=== PATIENT | female | born 1950 | race Caucasian/White ===

== ENCOUNTER 2023-08-21 09:45 | Inpatient (IN) | payer MEDICARE, SELFPAY ==
[2023-08-21] MEDS: SENOKOT PO ×2 (08:00→21:03)
[2023-08-21 09:55] VITALS: BP 119/83
--- NOTE | 2023-08-21 10:39 | HPS.HSE ---
Addendum entered and electronically signed by ARCHIE Nevarez 08/21/23 13:40:
Edit: Former Smoker
Original Note:
Family Physician
-
Family Physician: Maldonado Restrepo
Chief Complaint
-
Tachycardia
History of Present Illness
72-year-old female with past medical history of anxiety, depression, GERD, spinal stenosis was recently diagnosed with influenza A and treated with Tamiflu presented to [facility]'s emergency room on 08/14 for palpitations and the feeling
of anxiety. Patient was found to be in rapid A-fib and had elevated troponins. She was started on a cardizem and heparin infusion. LHC was preformed at [facility] and MVD was found. She was transferred today for pre-operative work up and eventual CT
surgery.
Of note, she has completed her course of tamiflu.
Medical History
Past Medical History
Past Medical History: Reports Arrhythmia, CAD, GERD, HTN, Hypercholesterolemia and Psychiatric (anxiety/depression)
Past Surgical History: Reports Cardiac (LHC)
Social History
Tobacco: Non-smoker
Alcohol: Occasional
Drug: Marijuana
Employment: Retired
Family History
Family History: CAD
Allergies / Home Medications
Allergies reflects when Allergies were last updated in [facility].
Home Medications with original date entered in [facility]
Allergy/Medication List:
PCN and Iodinated contrast media
Medication list:
Lexapro 20 mg p.o. daily
Pantoprazole 40 mg p.o. daily
Xanax 0.25 mg every 8 hours as needed for anxiety
Aspirin 81 mg p.o. daily
Atorvastatin 20 mg p.o. nightly
Metoprolol succinate 25 mg p.o. daily
Review of Systems
-
History Source: Patient
A 12 point ROS was completed and negative except as noted: Yes
Constitutional: Reports Fever and Fatigue
Respiratory: Reports Trouble Breathing
Cardiac: Reports Palpitations
Physical Exam
Vital Signs
Vital Signs
Pulse Ox
97
08/21/23 09:58
Physical Exam
General: Well Developed
HEENT: NormoCephalic
Respiratory: Decreased Breath Sounds
Cardiac: S1/S2
Breast: Deferred by me
GI: Soft, Non Tender and Flat
Rectal: Deferred by Provider
Musculoskeletal: No Edema
Skin: Warm and Dry
Neuro: AO x 3
Hematologic/Lymphatic: No Lymphadenopathy
Psych: Calm
Laboratory Results
-
pending
Impression/Plan
-
IMPRESSION:
72-year-old female with past medical history listed above transferred from [facility] for CABG eval.
PLAN:
#CAD
-Patient's case will be discussed with attending physician; Further details regarding surgical timing intervention will be determined after attending physicians full evaluation
-Routine preoperative cardiothoracic surgery orders will be initiated.
>>Imaging preformed at [facility] requested
-STS risk stratification score will be calculated after preoperative testing is complete
-Continue heparin gtt
- LHC at [facility] revealed significant ostial circumflex lesion, mid LAD lesion and moderate distal left main eccentric lesion and its significantly calcified
#Hx of Atrial Fibrillation
- continue heparin gtt
- continue metoprolol
#Anxiety/Depression
-continue lexpro and xanax PRN
#HLD
-continue atorvastatin
#Influenza A
- Complete tamiflu (5 day course)
- Monitor fever trends
- t/C ID consult
[2023-08-21 10:48] VITALS: BMI 23.6
--- NOTE | 2023-08-21 10:54 | CON.CAR ---
Addendum entered and electronically signed by Shahid Grigsby MD 08/21/23 15:00:
72 yo female with PMH of GERD, recent flu transferred from [facility] with CAD, NSTEMI for CABG evaluation. Also new paroxysmal A fib. She is chest pain free. Exam with RRR, no murmurs, no edema. I reviewed her echo images: EF 50-55%, no significant
valve disease. Continue ASA 81mg daily, and heparin drip. LFT are elevated: trend before starting statin.
Original Note:
Consultation
Consultation Request
Date/Time Consultation Requested: 08/21/23 1037
Date/Time Consultation Performed: 08/21/23 1056
Requesting Provider: Elicia Machado NP
Performing Provider: Tosin ALMANZA for Dr. Grigsby
Reason for Consultation: coronary artery disease
Medical History
-
Chief Complaint: nausea, palpitations, SOB
History of Present Illness:
72 y/o female with GERD, anxiety, depression, spinal stenosis, and COVID19 in June who is transferred from [facility] for surgical management of newly discovered CAD. Briefly, she developed nausea and dry-heaving at home last Monday
08/11/23, then she developed palpitations and SOB, as well as cough and went to the hospital last Monday. She tested + for flu A at urgent care prior. In the hospital, she was seen to have AFIB with RVR. IV diltiazem and heparin were initiated, and
has since converted to SR. Per [facility] cardiology notes, she was briefly on sotalol, but QTC prolonged and she was changed to metoprolol. Otherwise, troponin was elevated. Cath showed multivessel disease (see below) and she is transferred for CABG.
Past Medical History
Past Medical History: GERD, Psychiatric (anxiety/depression) and Other (as above)
Social History
Tobacco: Former Smoker (quit 30-40 years ago)
Alcohol: Occasional (occasional glass of wine)
Drug: Marijuana (occasional)
Family History
Family History: Early CAD (Mom had first PR in her 30's. at age 75. Had bypass surgery.)
Allergies / Home Medications
Allergy/AdvReac Type Severity Reaction Status Date / Time
Iodinated Contrast Media Allergy Intermediate Rash Verified 08/21/23 10:43
Penicillins Allergy Unknown Unknown Verified 08/21/23 10:43
Home medications:
-pantoprazole and escitalopram (not sure of her home dosing)
Review of Systems
-
History Source: Patient and Other (and chart and discussion with CT surgery ADMINISTRATIVE APPEALS TRIBUNAL MEMBER)
All other systems: Negative unless noted
Respiratory: Cough and Trouble Breathing
Cardiac: Palpitations
Abdomen/GI: Nausea
Physical Exam
Vital Signs
Pulse Ox
97
08/21/23 09:58
Physical Exam
General: Well Developed, Well Nourished and No Apparent Distress
HEENT: Normocephalic and Anicteric
Respiratory: Clear and Non Labored Respirations
Cardiac: Regular Rhythm
Breast: Deferred by me
GI: Soft, Non Distended and Normal Bowel Sounds
Musculoskeletal: No Edema
Skin: Warm and Dry
Neuro: AO x 3
Psych: Calm
Impression / Plan
-
Coronary artery disease:
-new diagnosis, severe
-CABG plan per CT surgery
-continue ASA, statin, BB, continue heparin
-per notes, patient with NSTEMI - more records to come (such as official echo report), but per report EF was normal
-obtain baseline EKG here- ordered
Paroxysmal AFIB:
-currently in SR, follow telemetry
-[id number] score is at least 3 for age, female, and CAD; continue IV heparin, which requires intensive monitoring for toxicity
-continue metoprolol
Recent Flu A
Anxiety/depression: takes Lexapro as OP
Data Reviewed
-
EKG: Other (will order baseline EKG)
Radiology: Report Reviewed by me
Medical Tests (Nuc Med, Echo etc): Report Reviewed by me (cath 08/17/23: LM severe calcification, distal 40% stenosis, LAD: severe calcification, circ: ostial 80% stenosis, RCA: prox 20% stenosis and 30% stenosis, mid and distal 10 percent stenosis)
and Other (echo done at [facility] and results requested by CT surgery team)
Labs: Labs Reviewed by me (hgb 13.9, creatinine 0.8, potassium 4.1 )
[2023-08-21 10:58] LABS: Hematocrit 38.5 % (37.0-47.0); Hemoglobin 13.9 g/dL (12.0-16.0); Mean Corp Hgb Conc. 36.1 g/dL (33.0-37.0); Mean Corpuscular Hgb 30.5 pg (27.0-31.0); Mean Corpuscular Volume 84.6 fL (81.0-99.0); Mean Platelet Volume 10.6 fL (7.4-10.4); Platelet Count 253 10^3/uL (130-400); Red Blood Cell Count 4.55 10^6/uL (4.20-5.40); White Blood Cell Count 7.9 10^3/uL (4.8-10.8)
[2023-08-21 11:12] LABS: INR 1.06; PT 13.6 Sec (11.4-14.6)
[2023-08-21 11:13] LABS: ALT (SGPT) 125 U/L (0-35); APTT 39.1 Sec (23.4-35.0); AST (SGOT) 111 U/L (14-36); Alkaline Phosphatase 66 U/L (38-126); Blood Urea Nitrogen 19 mg/dl (7-17); Calcium 9.2 mg/dl (8.4-10.2); Carbon Dioxide 24 mmol/L (22-30); Chloride 106 mmol/L (98-107); Estimated Creatinine Clearance 63 ml/min; Glucose 104 mg/dl (70-99); Magnesium 2.1 mg/dl (1.6-2.3); Potassium 4.1 mmol/L (3.5-5.1); Sodium 136 mmol/L (135-145); Total Bilirubin 1.1 mg/dl (0.2-1.3); Total Protein 6.6 g/dl (6.3-8.2); eGFR > 60.00
[2023-08-21 11:21] LABS: NT-proBNP 418 pg/ml
--- NOTE | 2023-08-21 11:35 | PTCARENOTE ---
Patient transferred from [facility] with CABG evaluation. IV heparin infusing RFA at 950 units/hr. Patient seen by CT surgery PA. Labs sent as ordered. Patient oriented to the room and plan of care, admission assessment completed, SR on the monitor.
Patient does appear anxious and overwhelmed with impending surgery. Ordering lunch, call gonzalez within reach.
[2023-08-21] MEDS: HEPARIN 25000 UNITS/250 ML IV (12:52)
[2023-08-21 13:00] VITALS: BP 109/91
--- NOTE | 2023-08-21 15:26 | W.PN.UPDATE ---
Update Note
Progress Note Update
Pt seen and examined
Discussed course at [facility] multiple times with Dr Santos
Cath with ostial lad/om disease
Echo preserved ef
PT was flu + and now s/p Tamiflu course
No respiratory complaints now
I agree cabg/epicardial maze indicated
Will wait for input from ID concerning timing, ?any benefit/risk? waiting or proceeding followng recent therapy for flu
Discussed in detail with pt
All questions answered
[2023-08-21 15:49] VITALS: BMI 23.6
[2023-08-21 16:19] VITALS: BP 98/73
--- NOTE | 2023-08-21 16:21 | W.PN.UPDATE ---
Update Note
Progress Note Update
Procedure Type:�Isolated CABG
PERIOPERATIVE OUTCOME ESTIMATE %
Operative Mortality 2.08%
Morbidity & Mortality 6.1%
Stroke 1.08%
Renal Failure 0.554%
Reoperation 2.37%
Prolonged Ventilation 3.6%
Deep Sternal Wound Infection 0.141%
Long Hospital Stay (>14 days) 4.7%
Short Hospital Stay (<6 days)* 39.2%
Clinical Summary
Planned Surgery: Isolated CABG, Urgent, First cardiovascular surgery
Demographics: 72 year old, White, female, 68.4kg, 170cm, BMI: 23.7 kg/m�
Lab Values: Creatinine: 0.8 mg/dL, Hematocrit: 38.5%, WBC Count: 7.9 10�/�L, Platelet Count: 404259 cells/�L
Substance Abuse: Former smoker, Illicit Drug Use
Risk Factors / Comorbidities: Family Hx of CAD
Pulmonary RF: Unknown CLD
Cardiac Status: Ejection Fraction = 55%
Coronary Artery Disease: 3 vessels diseased, Left Main Stenosis >=50%, Proximal LAD Stenosis >=70%, Non-ST Elevation KS, KS: 1 to 7 Days
Valve Disease: Trivial/Trace AR, Trivial/Trace MR, Trivial/Trace TR
Arrhythmia: Recent A-fib
--- NOTE | 2023-08-21 16:44 | CON.ID ---
Consultation
-
Date/Time Consultation Requested: 08/21/2023 1510
Date/Time Consultation Performed: 08/21/2023 1600
Requesting Provider: Dr. Miller
Performing Provider: Dr. Llamas
Reason for Consultation: Cough
Chief Complaint / Past History
History of Present Illness
Charisse Gibson is a 72-year-old female being evaluated at the request of Dr. Miller for evaluation of cough and recent influenza. History is obtained from chart review, along with patient interview.
The patient has a significant past medical history of CAD, and reports that she developed COVID 1-1/2 weeks before [place], with resulting symptomatology of cough and generalized weakness for 3 weeks thereafter. More recently, she reports that
approximately 8 to 9 days ago she developed acute onset of nausea. [facility]. She was placed on a course of Tamiflu which she completed. Most recently she developed palpitations and presented to
[facility] ER, where she was found to be in rapid A-fib with elevated troponins.. She underwent left heart catheterization and she was found to have multivessel disease. She is transferred to [facility] for eventual CT surgery.
At this time she admits to an ongoing cough but really no significant sputum, and notes when it is produced it is only whitish. She denies any fevers or chills. She denies any shortness of breath.
Past History
Additional Past Medical History:
Anxiety/depression
GERD
CAD
A-fib
Past Surgical History: None
Allergy History:
Iodinated Contrast Media Allergy (Intermediate, Verified 08/21/23 10:43)
Rash
Penicillins Allergy (Unknown, Verified 08/21/23 10:43)
Unknown
Medications Reviewed: Yes
Current Antibiotics:
None
Social History
Tobacco: Non-Smoker
Alcohol: Occasional
Drug: Marijuana
Employment: Retired
Family History
Family History: Not Pertinent
Review of Systems
Vital Signs
Temp Pulse Resp BP Pulse Ox
98.1 F 68 18 98/73 95
08/21/23 16:20 08/21/23 16:30 08/21/23 16:20 08/21/23 16:19 08/21/23 16:20
Physical Exam
Physical Exam
Constitutional: No Acute Distress, Comfortable and Non-toxic
Head: Normocephalic
Eyes: Pupils Equal, Pupils Round, No Conjunctival Hemorrhage and Sclera Anicteric
Oral: No Thrush and No Ulcers
Cardiovascular: Regular Rate and S1/S2; Negative S3/S4
Pulmonary: Clear; Negative Wheezes or Rales
Gastrointestinal: Soft, Non Tender, Non Distended, Normal Bowel Sounds, No Rebound and No Guarding
Extremities: Negative Edema, Clubbing or Cyanosis
Musculoskeletal: Negative Joint Swelling or Joint Effusion
Skin: Warm and Dry; Negative Rash or Jaundice
Neurological: Awake, Alert and Oriented
Psychological: Calm
.
Lab / Diagnostic Study Results
08/21/23 12:01
08/21/23 10:45
PT 13.6 Sec (11.4-14.6) 08/21/23 10:45
INR 1.06 08/21/23 10:45
Assessment / Plan
Cough (without shortness of breath)
Recent influenza infection; status post course of Tamiflu
Recent COVID-19 infection
CAD with multivessel disease. CT surgery anticipated
Anxiety/depression
GERD
A-fib
Recommendations:
At present, I see no evidence of ongoing infection. White count is normal. Temperatures are normal, and sputum (scant when produced) is whitish.
Will check CXR, but if normal I see no contraindication from infectious disease standpoint that would prevent her from undergoing her anticipated surgery.
Care Review
Plan reviewed with: Other Provider (CT Sx BODY PRESS OPERATOR)
[2023-08-21 19:56] VITALS: BP 104/81
[2023-08-21 20:23] LABS: APTT 72.4 Sec (23.4-35.0)
--- NOTE | 2023-08-21 22:29 | W.PN.CT ---
Assessment / Plan
-
Assessment:
72 y/o F, transferred from [facility]
-Multivessel CAD (involving LAD, CX and distal LM)
-NSTEMI @ [facility]
-Afib/flutter
-Recent influenza A virus (completed course of Tamiflu @ [facility])
-Recent COVID (06/2024)
-Iodinated Contrast Media Allergy (Intermediate, Verified 08/21/23 10:43)
-PCN allergy (rash)
-Anxiety/depression
-GERD
-Transaminitis
-ETOH use (admits to at least 3 drinks every other day)
-Former tobacco use
-Occasional marijuana use
-Diverticulosis
-Spinal stenosis
-Left adrenal mass (stable, 9mm, per CTA 08/14/23)
-Left Ovarian cyst (2.8 cm, per CTA 08/14/23)
Plan:
-Cont. current meds (Heparin gtt, ASA, Toporol XL; Avoid JYOTSNA-I/ARBs in preparation for CABG)
-Will d/c heparin drip contracting specialist to OR
-Ongoing preop evaluation
-For CABG or Monday
Subjective
-
Date of Service: August 21, 2023
Objective Data
-
Lab Results
08/21/23 12:01
08/21/23 10:45
PT 13.6 Sec (11.4-14.6) 08/21/23 10:45
INR 1.06 08/21/23 10:45
APTT 72.4 Sec (23.4-35.0) H 08/21/23 20:04
Vital Signs
Vital Signs
Temp Pulse Resp BP Pulse Ox
98 F 68 20 104/81 97
08/21/23 19:49 08/21/23 20:00 08/21/23 19:49 08/21/23 19:56 08/21/23 19:49
CT Intake/Output/Weight
08/21/23 08/21/23 08/22/23
06:59 18:59 06:59
Output Total 100 / 100
Balance -100 / -100
SaO2: 97
[2023-08-21 23:08] VITALS: BP 97/83
[2023-08-21] MEDS: XANAX 0.25 MG PO (23:35)
[2023-08-22] VITALS (9 sets, daily range): BP systolic 90–119; BP diastolic 58–93; BMI 23.6
[2023-08-22 00:09] LABS: Urine Albumin Negative (Neg - Trace); Urine Bilirubin Negative (Negative); Urine Character Clear (Clear); Urine Color Yellow; Urine Glucose Negative (Negative); Urine Ketone Trace (Negative); Urine Leukocyte Negative (Negative); Urine Nitrite Negative (Negative); Urine Occult Blood 1+ (Negative); Urine Specific Gravity 1.015 (<1.030); Urine Urobilinogen Negative (Neg - 1+)
[2023-08-22 01:10] LABS: Urine Bacteria Few (Negative); Urine Red Blood Cell 0-2 /HPF (0-2); Urine Squamous Cell 21-25 /LPF (Few); Urine White Cell 0-2 /HPF (0-5)
--- NOTE | 2023-08-22 02:58 | PTCARENOTE ---
Heparin infusing at 1100 units/hr. No complaints at present. SR on the monitor.
[2023-08-22 04:08] LABS: APTT 105.4 Sec (23.4-35.0)
[2023-08-22 04:22] LABS: Troponin I < 0.012 ng/ml
--- NOTE | 2023-08-22 04:30 | W.PN.CT ---
Today's Communication / Plan
-
Plan:
-Cont. current meds (Heparin gtt, ASA, Toprol XL; Avoid JYOTSNA-I/ARBs in preparation for CABG)
-Will d/c heparin drip infrastructure solutions architect to OR
-Ongoing preop evaluation
-For CABG or Monday
Assessment / Plan
-
Assessment:
72 y/o F, transferred from [facility]
-Multivessel CAD (involving LAD, CX and distal LM)
-NSTEMI @ [facility]
-Afib/flutter
-LVEF 50-55%
-Recent influenza A virus (completed course of Tamiflu @ [facility])
-Recent COVID (06/2024)
-Iodinated Contrast Media Allergy (Intermediate, Verified 08/21/23 10:43)
-PCN allergy (rash)
-Anxiety/depression
-GERD
-Transaminitis
-ETOH use (admits to at least 3 drinks every other day)
-Former tobacco use
-Occasional marijuana use
-Diverticulosis
-Spinal stenosis
-Left adrenal mass (stable, 9mm, per CTA 08/14/23)
-Left Ovarian cyst (2.8 cm, per CTA 08/14/23)
Discussed patient care with: Cardiology, Nursing, Pharmacy and Care Team
Subjective
-
Date of Service: August 22, 2023
Pt offers no complaints, denies CP/SOB overnight
Objective Data
-
Lab Results
08/21/23 12:01
PT 13.6 Sec (11.4-14.6) 08/21/23 10:45
INR 1.06 08/21/23 10:45
APTT 105.4 Sec (23.4-35.0) H 08/22/23 03:36
Vital Signs
Vital Signs
Temp Pulse Resp BP Pulse Ox
98 F 71 20 110/93 96
08/22/23 03:38 08/22/23 03:31 08/22/23 03:38 08/22/23 03:31 08/22/23 03:38
CT Intake/Output/Weight
08/21/23 08/21/23 08/22/23
06:59 18:59 06:59
Output Total 300 / 300
Balance -300 / -300
SaO2: 96 (RA)
Physical Exam
-
General: Awake, Oriented and AOx3
Cardiovascular: Regular rate & rhythm, No Murmurs, No Rub and No Gallop
Respiratory: Clear
Incision: Clean, Dry and Intact
Extremities: No Edema
Data Reviewed
-
Lab Results: Results Reviewed
Medications: Active Meds Reviewed
Chest X-Ray: Report Reviewed and Image Reviewed
ECG: Report Reviewed and Image Reviewed
[2023-08-22 05:04] LABS: ALT (SGPT) 121 U/L (0-35); AST (SGOT) 91 U/L (14-36); Albumin 3.6 g/dl (3.5-5.0); Alkaline Phosphatase 59 U/L (38-126); Blood Urea Nitrogen 23 mg/dl (7-17); Calcium 9.4 mg/dl (8.4-10.2); Carbon Dioxide 21 mmol/L (22-30); Chloride 105 mmol/L (98-107); Direct Bilirubin 0.5 mg/dl (0.0-0.4); Estimated Creatinine Clearance 63 ml/min; Glucose 101 mg/dl (70-99); HDL Cholesterol 54 mg/dl; LDL Cholesterol, Calculated 47 mg/dl; Potassium 3.8 mmol/L (3.5-5.1); Sodium 138 mmol/L (135-145); Total Bilirubin 1.1 mg/dl (0.2-1.3); Total Cholesterol 117 mg/dl (50-199); Triglyceride 84 mg/dl (10-149); Very Low Density Lipoprotein 16 mg/dl (0-30); eGFR > 60.00
[2023-08-22 05:08] LABS: GGTP 27 U/L (12-43)
[2023-08-22] MEDS: SENOKOT 8.59999999999999964 MG PO (08:39)
[2023-08-22] MEDS: LEXAPRO 20 MG PO (08:39)
[2023-08-22] MEDS: PROTONIX 40 MG PO (08:39)
[2023-08-22] MEDS: TOPROL XL 25 MG PO (08:58)
--- NOTE | 2023-08-22 09:30 | CM ---
spoke to pt in room, she is prev indep, lives alone in a split level home with no steps to enter. her sister is nearby and supportive. plan is for CABG this admission, cm to do preop teaching. pt did mention that after dc she would go to her
sisters home to recover. cm to obtain address.
--- NOTE | 2023-08-22 10:18 | W.PN.CD ---
Today's Communication / Plan
-
IV heparin
CABG eval
Impression / Plan
-
Coronary artery disease:
-new diagnosis, severe
-CABG plan per CT surgery
-continue ASA, statin, BB, continue IV heparin
-per notes, patient with NSTEMI - more records to come (such as official echo report), but per report EF was normal
Paroxysmal AFIB:
-currently in SR, follow telemetry
-[id number] score is at least 3 for age, female, and CAD; continue IV heparin, which requires intensive monitoring for toxicity
-continue metoprolol
Recent Flu A
Anxiety/depression: takes Lexapro as OP
Physical Exam
Vital Signs/Labs
Vital Signs
Temp Pulse Resp BP Pulse Ox
98 F 67 18 110/93 97
08/22/23 07:27 08/22/23 07:27 08/22/23 07:27 08/22/23 03:31 08/22/23 07:27
08/21/23 08/22/23 08/23/23
06:59 06:59 06:59
Actual Weight 68.4 kg
08/21/23 12:01
08/22/23 03:36
PT 13.6 Sec (11.4-14.6) 08/21/23 10:45
INR 1.06 08/21/23 10:45
APTT 105.4 Sec (23.4-35.0) H 08/22/23 03:36
Magnesium 2.1 mg/dl (1.6-2.3) 08/21/23 10:45
Triglycerides 84 mg/dl (10-149) 08/22/23 03:36
LDL Cholesterol, Calc 47 mg/dl 08/22/23 03:36
VLDL Cholesterol, Calc 16 mg/dl (0-30) 08/22/23 03:36
HDL Cholesterol 54 mg/dl 08/22/23 03:36
08/21/23
10:45
[id number] Pept 418
LAB Results
08/22/23
03:36
Troponin I < 0.012
Physical Exam
Constitutional: No acute distress
EENT: Anicteric
Cardiovascular: Rhythm & rate is regular and Pedal edema is absent
Respiratory: Respiratory effort normal and Lungs clear to auscul.
GI: Soft and Distention absent
Neuro/Psych: AO x 3
Data Reviewed
-
Date of Service: August 22, 2023
[2023-08-22 10:39] LABS: APTT 78.8 Sec (23.4-35.0)
[2023-08-22] MEDS: HEPARIN 25000 UNITS/250 ML IV (11:46)
--- NOTE | 2023-08-22 13:03 | W.PN.ID1 ---
Date of Service
Date of Service: August 22, 2023
Today's Communication
Observe off antibiotics
Assessment / Plan
Cough (without shortness of breath)
Recent influenza infection; status post course of Tamiflu
Recent COVID-19 infection
CAD with multivessel disease. CT surgery anticipated
Anxiety/depression
GERD
A-fib
Recommendations:
Continue to observe off antibiotics.
Discussed with CT Surgery. Tentative CABG later in the week.
Chief Complaint
-: Other (Recent influenza infection)
Subjective / Review of Systems
Review of Systems: No Fever, No Chills, Cough (Mild) and No Sputum Production
Vital Signs / Physical Exam
Vital Signs
Vital Signs
Temp Pulse Resp BP Pulse Ox
97.6 F 90 20 119/81 97
08/22/23 11:59 08/22/23 11:59 08/22/23 11:59 08/22/23 11:59 08/22/23 11:59
Physical Exam
Constitutional: No Acute Distress, Comfortable and Non-toxic
Cardiovascular: S1/S2; Negative S3/S4
Pulmonary: Non Labored; Negative Wheezes or Rales
Gastrointestinal: Soft and Non Tender
Skin: Warm and Dry; Negative Rash or Jaundice
Neurological: Awake and Alert
Psychological: Calm
Objective Data
Lab Data
Lab Results
08/21/23 12:01
08/22/23 03:36
PT 13.6 Sec (11.4-14.6) 08/21/23 10:45
INR 1.06 08/21/23 10:45
APTT 78.8 Sec (23.4-35.0) H 08/22/23 10:11
Estimated Creat Clear 63 ml/min 08/22/23 03:36
Total Bilirubin 1.1 mg/dl (0.2-1.3) 08/22/23 03:36
GGT 27 U/L (12-43) 08/22/23 03:36
AST 91 U/L (14-36) H 08/22/23 03:36
ALT 121 U/L (0-35) H 08/22/23 03:36
Alkaline Phosphatase 59 U/L (38-126) 08/22/23 03:36
Most recent labs reviewed.
Chest X-Ray: Image Reviewed and Report Reviewed
Micro Results:
08/21/23 20:46 MRSA Screen - Pending
Nose
Imaging:
08/22/2023 CXR (2 view): No acute mediastinal abnormalities. No acute pleural or parenchymal abnormalities.
Care Review
Plan reviewed with: Physician (CT Surgery)
--- NOTE | 2023-08-22 15:14 | W.PN.UPDATE ---
Update Note
Progress Note Update
seen today
reviewed plans for cab/maze
risks, complications, benefits discussed
all questions answered
consent signed
--- NOTE | 2023-08-22 18:16 | PTCARENOTE ---
Pt ambulating in room and chan, denies pain, offers no complaints.
--- NOTE | 2023-08-22 19:50 | PTCARENOTE ---
Assumed care of patient at 1900, patient AAO, denies SOB, chest pain/discomfort. Heparin infusing per protocol. SR on monitor, VSS, lungs diminished bilaterally, SPO2 95% on RA. Abd soft, non tender, voiding without issue. Palpable distal
pulses. PIV assessed and maintained. Full assessment completed as documented, plan of care discussed with patient verbalizing understanding.
[2023-08-22] MEDS: SENOKOT PO (20:01)
[2023-08-22] MEDS: XANAX 0.25 MG PO (22:25)
[2023-08-22] MEDS: KCL 20 MEQ PO (22:52)
--- NOTE | 2023-08-22 22:57 | PTCARENOTE ---
received pt from IVU into rm [id number]. pt A&Ox4. SR on tele-monitor, HR 70s. NIBP 109/90. POX 95% on RA. non-productive, occasional cough noted. PIV intact. Heparin gtt infusing. see worklist for complete nursing assessment, interventions, VS, and I&Os.
[2023-08-23] VITALS (8 sets, daily range): BP systolic 84–115; BP diastolic 59–83; BMI 23.6
[2023-08-23 04:13] LABS: Hematocrit 40.6 % (37.0-47.0); Hemoglobin 14.2 g/dL (12.0-16.0); Mean Corpuscular Volume 85.8 fL (81.0-99.0); Mean Platelet Volume 10.5 fL (7.4-10.4); Platelet Count 266 10^3/uL (130-400); Red Blood Cell Count 4.73 10^6/uL (4.20-5.40); Red Cell Dist. Width 12.8 % (11.5-14.5); White Blood Cell Count 9.3 10^3/uL (4.8-10.8)
[2023-08-23 04:25] LABS: APTT 116.2 Sec (23.4-35.0)
--- NOTE | 2023-08-23 04:34 | W.PN.CT ---
Today's Communication / Plan
-
Plan:
-Cont. current meds (Heparin gtt, ASA, Toprol XL; Avoid JYOTSNA-I/ARBs in preparation for CABG)
-Will d/c heparin drip reception centre manager to OR
-Ongoing preop evaluation
-For CABG/MAZE/ELAA tomorrow 08/24, by Dr. Miller
Assessment / Plan
-
Assessment:
72 y/o F, transferred from [facility]
-Multivessel CAD (involving LAD, CX and distal LM)
-NSTEMI @ [facility]
-Afib/flutter
-LVEF 50-55%
-Recent influenza A virus (completed course of Tamiflu @ [facility])
-Recent COVID (06/2024)
-Iodinated Contrast Media Allergy (Intermediate, Verified 08/21/23 10:43)
-PCN allergy (rash)
-Anxiety/depression
-Prediabetes (A1C 6.0)
-GERD
-Transaminitis
-ETOH use (admits to at least 3 drinks every other day)
-Former tobacco use
-Occasional marijuana use
-Diverticulosis
-Spinal stenosis
-Left adrenal mass (stable, 9mm, per CTA 08/14/23)
-Left Ovarian cyst (2.8 cm, per CTA 08/14/23)
Discussed patient care with: Cardiology, Nursing, Pharmacy and Care Team
Subjective
-
Date of Service: August 23, 2023
Pt offers no complaints, denies CP/SOB overnight
Objective Data
-
Lab Results
08/23/23 03:49
PT 13.6 Sec (11.4-14.6) 08/21/23 10:45
INR 1.06 08/21/23 10:45
APTT 116.2 Sec (23.4-35.0) H 08/23/23 03:49
Vital Signs
Vital Signs
Temp Pulse Resp BP Pulse Ox
98.3 F 75 20 115/83 100
08/23/23 03:47 08/23/23 03:36 08/23/23 03:47 08/23/23 03:36 08/23/23 03:47
CT Intake/Output/Weight
08/22/23 08/22/23 08/23/23
06:59 18:59 06:59
Intake Total 240 / 251 251
Output Total 300 / 300
Balance -300 / -300 240 / 251
SaO2: 100 (RA)
Physical Exam
-
General: Awake, Oriented and AOx3
Cardiovascular: Regular rate & rhythm, No Murmurs, No Rub and No Gallop
Respiratory: Clear
Sternum: Stable
Extremities: No Edema
Data Reviewed
-
Lab Results: Results Reviewed
Medications: Active Meds Reviewed
Chest X-Ray: Report Reviewed and Image Reviewed
ECG: Report Reviewed and Image Reviewed
[2023-08-23 05:03] LABS: ALT (SGPT) 110 U/L (0-35); AST (SGOT) 70 U/L (14-36); Albumin 3.8 g/dl (3.5-5.0); Alkaline Phosphatase 62 U/L (38-126); Blood Urea Nitrogen 23 mg/dl (7-17); Calcium 9.7 mg/dl (8.4-10.2); Carbon Dioxide 24 mmol/L (22-30); Chloride 102 mmol/L (98-107); Estimated Creatinine Clearance 56 ml/min; Glucose 105 mg/dl (70-99); Potassium 4.5 mmol/L (3.5-5.1); Sodium 137 mmol/L (135-145); Total Bilirubin 1.1 mg/dl (0.2-1.3); Total Protein 6.3 g/dl (6.3-8.2); eGFR > 60.00
--- NOTE | 2023-08-23 08:30 | PTCARENOTE ---
Patient received from night cleaner resting comfortably in bed, AAO X 3, denies pain. NSR via cm, SaO2 @ 97% on RA. Heparin infusing via PIV @ 1000units/hr. Patient updated to plan of care for the day, in agreement. See work list for full assessment
and interventions performed.
[2023-08-23] MEDS: LOW STRENGTH ASPIRIN 81 MG PO (08:41)
[2023-08-23] MEDS: PROTONIX 40 MG PO (08:41)
[2023-08-23] MEDS: LEXAPRO 20 MG PO (08:41)
[2023-08-23] MEDS: TOPROL XL 25 MG PO (08:41)
[2023-08-23] MEDS: SENOKOT PO ×2 (08:45→20:00)
--- NOTE | 2023-08-23 09:36 | W.PN.CD ---
Today's Communication / Plan
-
CABG/MAZE/LAAL tomorrow.
Impression / Plan
-
Impression/Plan: 72 y/o female with GERD, anxiety and recently influenza A positive, transferred from [facility] with NSTEMI and MV CAD for CABG. She did have brief AF-RVR which spontaneously converted at [facility].
#Coronary artery disease
-New diagnosis, severe.
-CABG plan per CT surgery (tomorrow).
-Continue ASA, statin, BB, continue IV heparin.
#Paroxysmal AFIB
-Currently in NSR.
-Rate control with metoprolol.
-[id number] score = 3 (age x1, female, and CAD).
-Heparin for NSTEMI/PAF.
-Surgical plan for MAZE, LAAL.
#Recent Flu A
-Acute, resolved.
-Required oseltamivir.
#Anxiety/depression
-Chronic, stable.
-Continue escitalopram.
Subjective/Interval History:
No acute events.
No subjective complaints.
Physical Exam
Vital Signs/Labs
Vital Signs
Temp Pulse Resp BP Pulse Ox
36.3 C 72 17 102/77 97
08/23/23 08:46 08/23/23 08:46 08/23/23 08:46 08/23/23 08:41 08/23/23 08:46
08/21/23 08/22/23 08/23/23
11:59 11:59 11:59
Actual Weight 68.4 kg
08/23/23 03:49
08/23/23 03:49
PT 13.6 Sec (11.4-14.6) 08/21/23 10:45
INR 1.06 08/21/23 10:45
APTT 116.2 Sec (23.4-35.0) H 08/23/23 03:49
Magnesium 2.1 mg/dl (1.6-2.3) 08/21/23 10:45
Triglycerides 84 mg/dl (10-149) 08/22/23 03:36
LDL Cholesterol, Calc 47 mg/dl 08/22/23 03:36
VLDL Cholesterol, Calc 16 mg/dl (0-30) 08/22/23 03:36
HDL Cholesterol 54 mg/dl 08/22/23 03:36
08/21/23
10:45
Pjv-X-Zwvdqynzhmc Pept 418
LAB Results
08/22/23
03:36
Troponin I < 0.012
Physical Exam
Constitutional: No acute distress and Comfortable
EENT: Anicteric and Moist mucous membranes
Cardiovascular: Rhythm & rate is regular, Pedal edema is absent, JVD pressure is normal, S1S2 is normal and Murmur/rub/gallop absent
Respiratory: Respiratory effort normal, Lungs clear to auscul., Wheeze Absent, Crackles Absent and Rhonchi Absent
GI: Soft, Distention absent, Flat, Non tender and Normal bowel sounds
Neuro/Psych: AO x 3
Other: Cath Site (Right radial access site is C/D/I.)
Data Reviewed
-
Date of Service: August 23, 2023
Medical Decision Making: Reviewed Test Results, Independent Historian Assessment and Test Interpretation
EKG: Tracing Personally Visualized and interpreted and Report Reviewed by me
Echo: Report Reviewed by me
X-Ray/CT/US/MRI/NUC/PET: Image Personally Visualized and interpreted and Report Reviewed by me
Medical Tests (PFT, Pathology etc): Report Reviewed by me
Labs: Labs Reviewed by me
Old Records: Reviewed
--- NOTE | 2023-08-23 10:10 | W.PN.ID1 ---
Date of Service
Date of Service: August 23, 2023
Today's Communication
Observe off abx.
Assessment / Plan
Cough (without shortness of breath)
Recent influenza infection; status post course of Tamiflu
Recent COVID-19 infection
CAD with multivessel disease.
Anxiety/depression
GERD
A-fib
Recommendations:
Continue to observe off antibiotics.
Discussed with CT Surgery. Tentative CABG tomorrow.
����������������������������������������������������������
Chief Complaint
-: Other (Recent influenza infection)
Subjective / Review of Systems
Review of Systems: No Fever, No Chills, Cough (slight), No Chest Pain and No Palpitations
Vital Signs / Physical Exam
Vital Signs
Vital Signs
Temp Pulse Resp BP Pulse Ox
97.4 F 72 17 102/77 97
08/23/23 08:46 08/23/23 08:46 08/23/23 08:46 08/23/23 08:41 08/23/23 08:46
Physical Exam
Constitutional: No Acute Distress, Comfortable and Non-toxic
Eyes: Sclera Anicteric
Cardiovascular: S1/S2; Negative S3/S4
Pulmonary: Coarse and Non Labored
Gastrointestinal: Soft, Non Tender and Non Distended
Neurological: Awake, Alert and Oriented
Psychological: Calm
Objective Data
Lab Data
Lab Results
08/23/23 03:49
08/23/23 03:49
PT 13.6 Sec (11.4-14.6) 08/21/23 10:45
INR 1.06 08/21/23 10:45
APTT 116.2 Sec (23.4-35.0) H 08/23/23 03:49
Estimated Creat Clear 56 ml/min 08/23/23 03:49
Total Bilirubin 1.1 mg/dl (0.2-1.3) 08/23/23 03:49
GGT 27 U/L (12-43) 08/22/23 03:36
AST 70 U/L (14-36) H 08/23/23 03:49
ALT 110 U/L (0-35) H 08/23/23 03:49
Alkaline Phosphatase 62 U/L (38-126) 08/23/23 03:49
Most recent labs reviewed.
Micro Results:
08/21/23 20:46 MRSA Screen - Final
Nose No Methicillin Resistant Staphylococcus aureus isolated.
Imaging:
08/22/2023 CXR (2 view): No acute mediastinal abnormalities. No acute pleural or parenchymal abnormalities.
Care Review
Plan reviewed with: Physician (CT SX SLAT GRADER)
--- NOTE | 2023-08-23 10:14 | CM ---
Reviewed chart. Met with Mrs. Gibson to review discharge plans. She states prior to admission she resides alone in a spilt-level home without any steps to enter. She states she has steps to get to each level. She states prior to admission she
was independent with ambulation and adls. She does not have any DME in the home. She states she is planning on going to her sisters home, [facility],[address], [place] [address]. phone ([phone]) She states she
resides in a one story rancher without any steps to enter. Sister states Mrs. Gibson stayed with her when she had her leg problem. She states she did not have any VNA Services at that time. Will need to check with Transitional Care Nurse if "[place] is in the catchment area. Her sister will be available to assist in her care if needed. Medical work-up in progress. The discharge plan is to go to her sister [facility] home with a home visit by the Cardiothoracic Transitional Care Nurse
versus VNA Services when medically stable.
We reviewed pre-op and post-op routines. We reviewed the shower instructions. We also reviewed restrictions including sternal precautions and driving restrictions. We also discussed a home visit by the Cardiothoracic Transitional Care Nurse versus
VNA Services. Gave her the Cardiothoracic Surgery Educational Booklet. She is agreeable to Transitional Care Nurse or VNA services. The plan is for CABG on 08/24/23.
[2023-08-23] MEDS: HEPARIN 25000 UNITS/250 ML IV (11:15)
--- NOTE | 2023-08-23 11:23 | PTCARENOTE ---
VS obtained, assessment stable. Patient resting comfortably, denies pain.
--- NOTE | 2023-08-23 11:30 | PTCARENOTE ---
VS obtained, stable. Patient ambulatory ad radha in room. Heparin gtt continues.
[2023-08-23 11:55] LABS: APTT 72.5 Sec (23.4-35.0)
--- NOTE | 2023-08-23 16:05 | PTCARENOTE ---
VS obtained, stable. RUE/LUE BP obtained, results conveyed to KIRAN Lamb. Patient education given regarding tomorrow's procedure, support provided.
[2023-08-23] MEDS: XANAX 0.25 MG PO (18:21)
[2023-08-23 18:38] LABS: APTT 79.3 Sec (23.4-35.0)
--- NOTE | 2023-08-23 20:00 | PTCARENOTE ---
PT AAO x4 w/o complaints of pain VSS, surgery prep completed. VSS
[2023-08-24] VITALS (10 sets, daily range): BP systolic 35–147; BP diastolic 13–86; BMI 23.3
--- NOTE | 2023-08-24 | PTCARENOTE ---
VSS no change from previous assessment
[2023-08-24 00:48] LABS: APTT 65.5 Sec (23.4-35.0)
--- NOTE | 2023-08-24 04:00 | PTCARENOTE ---
VSS no change from previous assessment
[2023-08-24] MEDS: MAGNESIUM OXIDE 500 MG PO (05:54)
[2023-08-24] MEDS: LOPRESSOR 25 MG PO (05:54)
[2023-08-24] MEDS: PROTONIX 40 MG PO (05:54)
--- NOTE | 2023-08-24 06:08 | PTCARENOTE ---
PT sx prep completed, all meds given,
--- NOTE | 2023-08-24 07:03 | W.CVOR.SURPR ---
CVOR Surgeon Immed Pre Op
-
I have examined this patient prior to performance of the scheduled procedure.
The patient's condition is unchanged from the time of the dictated/written History and
Physical and the patient is able to undergo the scheduled procedure.
[2023-08-24 07:32] LABS: ACT+ - POC 104 Seconds (82-134)
[2023-08-24 07:35] LABS: B.E. - POC -3.5 mmol/L; Glucose - POC 106 mg/dl (65-99); HCO3 - POC 20 mmol/L (21-29); Hematocrit - POC 39 % PCV (37-47); Hemodilution- POC Yes; Hemoglobin Calculated - POC 13.3; Ionized Calcium - POC 1.18 mmol/L (1.12-1.27); PCO2 - POC 30 mmHg (35-45); PO2 - POC 399 mmHg (80-100); Potassium - POC 3.5 mmol/L (3.6-5.0); Sodium - POC 140 mmol/L (135-145); pH - POC 7.43 (7.35-7.45)
--- NOTE | 2023-08-24 07:38 | W.PN.CD ---
Today's Communication / Plan
-
In surgery this morning.
Impression / Plan
-
Impression/Plan: 72 y/o female with GERD, anxiety and recently influenza A positive, transferred from [facility] with NSTEMI and MV CAD for CABG. She did have brief AF-RVR which spontaneously converted at [facility].
#Coronary artery disease
-New diagnosis, severe.
-CABG this morning.
#Paroxysmal AFIB
-Currently in NSR.
-Rate control with metoprolol.
-[id number] score = 3 (age x1, female, and CAD).
-Heparin for NSTEMI/PAF.
-Surgical plan for MAZE LAMACRINA.
#Recent Flu A
-Acute, resolved.
-Required oseltamivir.
#Anxiety/depression
-Chronic, stable.
-Continue escitalopram.
Subjective/Interval History:
Surgery this morning.
Physical Exam
Vital Signs/Labs
Vital Signs
Temp Pulse Resp BP Pulse Ox
37.1 C 78 15 115/86 96
08/23/23 20:00 08/24/23 05:54 08/23/23 16:03 08/24/23 05:54 08/23/23 16:03
08/22/23 08/23/23 08/24/23
11:59 11:59 11:59
Actual Weight 68.2 kg 67.4 kg
PT 13.6 Sec (11.4-14.6) 08/21/23 10:45
INR 1.06 08/21/23 10:45
APTT 65.5 Sec (23.4-35.0) H 08/23/23 23:57
Magnesium 2.1 mg/dl (1.6-2.3) 08/21/23 10:45
Triglycerides 84 mg/dl (10-149) 08/22/23 03:36
LDL Cholesterol, Calc 47 mg/dl 08/22/23 03:36
VLDL Cholesterol, Calc 16 mg/dl (0-30) 08/22/23 03:36
HDL Cholesterol 54 mg/dl 08/22/23 03:36
08/21/23
10:45
Oam-T-Atbovfholfu Pept 418
LAB Results
08/22/23
03:36
Troponin I < 0.012
Physical Exam
Exam deferred.
Data Reviewed
-
Date of Service: August 24, 2023
Medical Decision Making: Reviewed Test Results and Test Interpretation
EKG: Tracing Personally Visualized and interpreted and Report Reviewed by me
Echo: Report Reviewed by me
X-Ray/CT/US/MRI/NUC/PET: Image Personally Visualized and interpreted and Report Reviewed by me
Medical Tests (PFT, Pathology etc): Report Reviewed by me
Labs: Labs Reviewed by me
[2023-08-24 07:45] LABS: Urine Albumin Trace (Neg - Trace); Urine Bilirubin 1+ (Negative); Urine Character Clear (Clear); Urine Color Yellow; Urine Glucose Negative (Negative); Urine Ketone Negative (Negative); Urine Leukocyte Trace (Negative); Urine Nitrite Negative (Negative); Urine Occult Blood 2+ (Negative); Urine Urobilinogen Negative (Neg - 1+)
[2023-08-24 07:58] LABS: Urine Red Blood Cell 0-2 /HPF (0-2)
[2023-08-24 07:59] LABS: Urine Bacteria Few (Negative)
--- NOTE | 2023-08-24 08:04 | CM ---
Reviewed chart. Mrs. Gibson is in the operating room today. Prior to admission she resides with alone in a spilt level home without any steps to enter. Prior to admission she was independent with ambulation and adls. She does not have any DME
in the home. She is planning on going to stay with her sister when ready to go home. Her sister resides in a one story without any steps to enter. Medial work-up in progress. The discharge plan is to go to her sister home with a home visit by the
Cardiothoracic Transitional Care Nurse when medically stable.
[2023-08-24 09:12] LABS: ACT+ - POC 404 Seconds (82-134)
[2023-08-24 09:24] LABS: ACT+ - POC 467 Seconds (82-134)
[2023-08-24 09:52] LABS: ACT+ - POC 479 Seconds (82-134)
[2023-08-24 09:52] LABS: B.E. - POC 0.4 mmol/L; Glucose - POC 117 mg/dl (65-99); HCO3 - POC 24 mmol/L (21-29); Hematocrit - POC 25 % PCV (37-47); Hemodilution- POC Yes; Hemoglobin Calculated - POC 8.6; PCO2 - POC 34 mmHg (35-45); PO2 - POC 411 mmHg (80-100); Potassium - POC 5.1 mmol/L (3.6-5.0); Sodium - POC 137 mmol/L (135-145); pH - POC 7.46 (7.35-7.45)
[2023-08-24 10:01] LABS: B.E. - POC -0.7 mmol/L; Glucose - POC 128 mg/dl (65-99); HCO3 - POC 23 mmol/L (21-29); Hematocrit - POC 29 % PCV (37-47); Hemodilution- POC Yes; Hemoglobin Calculated - POC 9.7; Ionized Calcium - POC 1.02 mmol/L (1.12-1.27); O2 Saturation %Calculated-POC 99.9 5 (92-96); PCO2 - POC 35 mmHg (35-45); PO2 - POC 308 mmHg (80-100); Potassium - POC 4.9 mmol/L (3.6-5.0); Sodium - POC 139 mmol/L (135-145); pH - POC 7.43 (7.35-7.45)
[2023-08-24 10:05] LABS: ACT+ - POC 504 Seconds (82-134)
[2023-08-24 10:34] LABS: ACT+ - POC 96 Seconds (82-134)
[2023-08-24 10:35] LABS: B.E. - POC -3.5 mmol/L; Glucose - POC 131 mg/dl (65-99); HCO3 - POC 21 mmol/L (21-29); Hematocrit - POC 26 % PCV (37-47); Hemodilution- POC Yes; Hemoglobin Calculated - POC 8.9; Ionized Calcium - POC 0.99 mmol/L (1.12-1.27); O2 Saturation %Calculated-POC 99.9 5 (92-96); PCO2 - POC 34 mmHg (35-45); PO2 - POC 295 mmHg (80-100); Potassium - POC 4.6 mmol/L (3.6-5.0); Sodium - POC 140 mmol/L (135-145)
--- NOTE | 2023-08-24 11:19 | W.PN.CT.SURG ---
CT Surgery Operative Note
-
Pre-op Diagnosis: NSTEMI
CAD
AFIB
Flu
Post-op Diagnosis: Same
Procedure: Cabg x 3, on pump
estevez- diag/lad
ao-svg- om
REVH
LAAL #35 clip
Maze- encompass, epicardial RF ablation
TTFM
Rigid sternal fixation
Primary Surgeon: Angela
Assisting Surgeons: Zini - leg and chest
Specimen: None
Cultures: None
Complications / Blood Loss: None
Findings: Edgar with ef 50-55, no change post, no new wma
Leila free of clot, complete occlusion post clip
nsr
good conduit
good targets
good flow on TTFM
[2023-08-24 11:49] LABS: Glucose - Point of Care 148 mg/dl (70-99)
[2023-08-24] MEDS: ZINACEF 1500 MG IV ×2 (11:50)
[2023-08-24] MEDS: STERILE WATER FOR INJECTION 16 ML IV ×2 (11:50)
[2023-08-24] MEDS: NSS 500 IV (11:50)
--- NOTE | 2023-08-24 11:50 | PTCARENOTE ---
Patient received from cvor status post CABG x 3 on pump, YARIEL ligation/clip for hx of a fibb. ST elevation/and ischemia new post op on 12 lead ekg: Dr. Miller aware and at bedside: ordered to increase sytstolic BP's to 130's to 140's to increase
coronary perfusion. Levo/precedex/insulin gtt protocol. Temp epicardial A and V wires DDD mode back up rate 30bpm. Right IJ slick cordis/cvp transduction. No swan dio. Left radial art line. Right leg evh wrap jose r wrap cdi. Palpable bilateral
perepheral pulses. Chest tubes x 2 (mediastinal/left pleural to 1 pleur evac to -20cm cont wall suction: no 'dumping.' See flow record.
[2023-08-24 12:09] LABS: B.E. -4.4 mmol/L; O2 Saturation % 98.4 % (94-98); PCO2 33 mmHg (32-35); PO2 146 mmHg (83-108); Potassium 4.2 mMOL/L (3.5-5.1); Sodium 137 mMOL/L (136-145); pH 7.39 (7.35-7.45)
[2023-08-24 12:10] LABS: Hematocrit 24.7 % (37.0-47.0)
[2023-08-24 12:16] LABS: Platelet Count 173 10^3/uL (130-400)
[2023-08-24 12:23] LABS: Blood Urea Nitrogen 16 mg/dl (7-17); Estimated Creatinine Clearance 72 ml/min; Glucose 137 mg/dl (70-99); Magnesium 2.6 mg/dl (1.6-2.3)
[2023-08-24 12:24] LABS: INR 1.56; PT 18.8 Sec (11.4-14.6)
[2023-08-24 12:25] LABS: APTT 31.8 Sec (23.4-35.0)
--- NOTE | 2023-08-24 13:00 | PTCARENOTE ---
12 lead ekg improved.
[2023-08-24 13:05] LABS: Glucose - Point of Care 141 mg/dl (70-99)
--- NOTE | 2023-08-24 13:19 | CON.INTV ---
Consultation
Consultation Request
Date/Time Consultation Requested: 08/24/2023-1 PM
Date/Time Consultation Performed: 08/24/2023-1:15 PM
Requesting Provider: Cardiothoracic surgery
Performing Provider: Dr. Baires
Reason for Consultation: Postoperative ventilator/critical care management
Medical History
-
Chief Complaint: CAD
History of Present Illness:
72-year-old female with underlying anxiety and depression, paroxysmal atrial fibrillation and recent influenza who was diagnosed with severe CAD and underwent CABG-medical insurance verifier consulted for postoperative ventilator/critical care management 08/24/2023.
Intraoperative records were reviewed. No blood products were needed. No PA line was placed. No significant blood loss was noted. Patient is sedated on the ventilator and review of systems was unobtainable.
Past Medical History
Past Medical History: None (Hypertension. Hyperlipidemia. Anxiety. Depression. PAF. GERD.)
Social History
Tobacco: Non-smoker
Alcohol: Occasional
Drug: Marijuana
Occupational Exposures: No known asbestos exposure
Environmental Exposures: No known tuberculosis exposure
Family History
Family History: CAD
Allergies / Home Medications
Allergies
Allergy/AdvReac Type Severity Reaction Status Date / Time
Iodinated Contrast Media Allergy Rash Verified 08/21/23 21:44
Penicillins Allergy Unknown Verified 08/21/23 21:44
shellfish derived Allergy Rash Verified 08/21/23 21:44
Home Medications
Medication Instructions Recorded Confirmed Last Taken Type
alprazolam 0.25 mg tablet (Xanax) 0.25 mg PO TID PRN anxiety 08/21/23 08/21/23 Unknown History
escitalopram oxalate 20 mg tablet 20 mg PO DAILY Mental 08/21/23 08/21/23 Unknown History
(Lexapro) Health/Anxiety
pantoprazole 40 mg tablet,delayed 40 mg PO DAILY Gastrointestinal 08/21/23 08/21/23 Unknown History
release (Protonix) Issue
Review of Systems
-
Unable to Obtain full review of systems at this time due to: Patient Intubation
Vitals / Labs / Diagnostic Testing
Vital Signs
Temp Pulse Resp BP Pulse Ox
96.8 F L 82 14 115/86 98
08/24/23 13:00 08/24/23 13:00 08/24/23 13:00 08/24/23 05:54 08/24/23 13:00
Lab Data
08/24/23 11:49
Laboratory Results
08/23/23 08/23/23 08/24/23
18:10 23:57 11:49
PT 18.8 H
INR 1.56
APTT 79.3 H 65.5 H 31.8
pH 7.39
pCO2 33
pO2 146 H
HCO3 20.0 L
O2 Delivery Level
Microbiology
08/21/23 20:46 Nose MRSA Screen - Final
No Methicillin Resistant Staphylococcus aureus isolated.
Diagnostic Testing:
Physical Exam
-
Exam:
Well-nourished and well-developed in no apparent distress
HEENT-atraumatic, normocephalic, oral tracheal intubation
Heart-regular rate and rhythm-no murmurs, rubs or gallops
Chest-clear to auscultation, no wheezes, crackles, median sternotomy bandage is not removed
Abdomen soft nondistended
Extremities-no cyanosis, clubbing, edema and good peripheral pulses
Integument-intact, no rashes, lesions or ecchymosis
Neurologically not alert, not oriented, not moving any of his extremities sedated on a ventilator
Assessment
-
72-year-old female with underlying anxiety and depression, paroxysmal atrial fibrillation and recent influenza who was diagnosed with severe CAD and underwent CABG-medical insurance verifier consulted for postoperative ventilator/critical care management 08/24/2023.
Assessment
Severe CAD
Status post CABG x 4-BMXP-ugocqmlo/LAD, SVG-OM, left atrial clip, MAZE-Dr. Miller 08/24/2023
Mild anemia-hemoglobin 9
Mild hyperglycemia
Conditions present prior to admission:
Hypertension.
Hyperlipidemia.
Anxiety.
Depression.
PAF.
GERD.
Plan
Ventilator settings reviewed
FiO2 will be weaned
Minute ventilation will be adjusted
Arterial blood gases will be monitored
Spontaneous breathing trial will be attempted with hopeful extubation after anesthesia/sedation wear off
Pulmonary artery catheter parameters will be followed
Pressors/antihypertensive/inotropes/diuretics will be provided as needed
Monitor chest tube output
Monitor hemoglobin
Monitor platelet count and coags
Transfuse blood product if needed
CT surgery following chest tubes
Monitor blood sugar
Insulin drip per protocol
Aspiration precautions
VAP prevention protocol
DVT prophylaxis
Early nutrition
Early mobilization
Critical care statement: A total of 45 minutes of critical care time was provided for this patient today. This includes management of ventilator, spontaneous breathing trial, arterial blood gases, pressors, of unstable vital signs, evaluation of the
patient at bedside, reviewing the patient's pertinent medical records including radiographs, microbiology, laboratory evaluations, and discussion with primary team and critical care nursing.
Diagnostic data:
Chest x-ray 08/22/2023-NAD
Chest x-ray 08/24/2023-lungs appear hyperinflated, parenchymal opacification left midlung field likely atelectasis
Transesophageal echocardiogram 08/24/2023-EF 50%, grade 3 atheromatous disease aortic arch
FEV1 2.7-109%, FVC 3.39-103%-normal flow volume loop
Data Reviewed
-
PFT: Report reviewed by me
EKG: Report reviewed by me
Radiology: Report reviewed by me
Medical Tests (Nuc Med, Echo etc): Report reviewed by me
Labs: Labs reviewed by me
Old Records: Reviewed
Critical Care Time (in minutes): 45
--- NOTE | 2023-08-24 13:30 | W.PN.UPDATE ---
Update Note
Progress Note Update
Called to bedside post op, ecg shows mild KIRA I and AvL (<1 mm) and ST changes V3-V4. Stat echo at the bedside shows normal LVEF without regional wall motion. HD are stable coming out of the OR.
Unclear source of st changes, but doesn't seem consistent acute loss of graft/ACS.
Will follow.
[2023-08-24] MEDS: LEXAPRO PO ×2 (13:36→20:49)
[2023-08-24] MEDS: TYLENOL PO ×2 (13:38)
[2023-08-24] MEDS: MORPHINE SULFATE 2 MG IV ×2 (13:43→20:17)
[2023-08-24 14:01] LABS: Glucose - Point of Care 132 mg/dl (70-99)
--- NOTE | 2023-08-24 14:10 | PTCARENOTE ---
CPAP wean trial: patient is awakening spontaneously and following simple commands and moving all extremities. ABG in 30 to 45min to possible extubation .
--- NOTE | 2023-08-24 14:39 | W.PN.ID1 ---
Date of Service
Date of Service: August 24, 2023
Today's Communication
Sign off.
Assessment / Plan
Cough (without shortness of breath)
Recent influenza infection; status post course of Tamiflu
Recent COVID-19 infection
CAD with multivessel disease.
- s/p CABG
Anxiety/depression
GERD
A-fib
Recommendations:
No acute infectious process.
Little more to offer from an Infectious Diseases standpoint.
Will see again at your request.
����������������������������������������������������������
Chief Complaint
-: Other (Recent influenza infection)
Subjective / Review of Systems
Patient seen and examined. Currently status post OR. Remains intubated at this time, although weaning. No reported secretions.
Vital Signs / Physical Exam
Vital Signs
Vital Signs
Temp Pulse Resp BP Pulse Ox
97.5 F 84 16 115/86 100
08/24/23 13:55 08/24/23 13:46 08/24/23 13:46 08/24/23 05:54 08/24/23 13:46
Physical Exam
Constitutional: Acutely Ill and Non-toxic
Cardiovascular: Regular Rate
Gastrointestinal: Non Distended
Neurological: Awake
Objective Data
Lab Data
Lab Results
08/24/23 11:49
PT 18.8 Sec (11.4-14.6) H 08/24/23 11:49
INR 1.56 08/24/23 11:49
APTT 31.8 Sec (23.4-35.0) 08/24/23 11:49
Estimated Creat Clear 72 ml/min 08/24/23 11:49
Total Bilirubin Cancelled 08/24/23 06:00
GGT 27 U/L (12-43) 08/22/23 03:36
AST Cancelled 08/24/23 06:00
ALT Cancelled 08/24/23 06:00
Alkaline Phosphatase Cancelled 08/24/23 06:00
Most recent labs reviewed.
Micro Results:
08/21/23 20:46 MRSA Screen - Final
Nose No Methicillin Resistant Staphylococcus aureus isolated.
Imaging:
08/22/2023 CXR (2 view): No acute mediastinal abnormalities. No acute pleural or parenchymal abnormalities.
[2023-08-24 14:56] LABS: B.E. -4.1 mmol/L; HCO3 20.9 mmol/L (21-28); Hematocrit 30.7 % (37.0-47.0); Hemoglobin 10.8 g/dL (12.0-16.0); Ionized Calcium 1.17 mMOL/L (1.15-1.33); O2 Saturation % 99.1 % (94-98); PCO2 37 mmHg (32-35); PO2 160 mmHg (83-108); Platelet Count 252 10^3/uL (130-400); Potassium 4.1 mMOL/L (3.5-5.1); pH 7.36 (7.35-7.45)
[2023-08-24 14:58] LABS: Glucose - Point of Care 139 mg/dl (70-99)
[2023-08-24] MEDS: CALCIUM CHLORIDE 10% SYRINGE 500 MG IV (15:10)
[2023-08-24] MEDS: ALBUMIN 5% 250 IV ×2 (15:10→15:33)
[2023-08-24 15:13] LABS: Blood Urea Nitrogen 19 mg/dl (7-17); Estimated Creatinine Clearance 63 ml/min; Magnesium 2.4 mg/dl (1.6-2.3)
--- NOTE | 2023-08-24 15:16 | RESPNOTE ---
Patient extubated to a 6 liter nasal cannula following CPAP trial and ABG. Incentive spirometry instruction completed
[2023-08-24] MEDS: MORPHINE SULFATE 4 MG IV (15:21)
--- NOTE | 2023-08-24 15:56 | W.PN.UPDATE ---
Update Note
Progress Note Update
72 fifi old female admitted 08/14 to [facility] with atrial fibrillation and elevated troponins. Recent Influenza A treated with Tamifu. R/I for NSTEMI. Cardiac cath reported multi vessel coronary disease and patient transferred 08/21 to [facility]
on IV Heparin. Mild transaminitis improved after statin held. Underwent CABG x 3, YARIEL clip and [facility] MAZE 08/[address] Miller. Tolerated Zinacef without reaction (hx unknown reaction to PCN).
IV fluids: 2200
U.O.:� 350
Blood:� none
Wires:� 2 A + 2 V
Inotropes:� none
Pressors:� Levophed
Sedatives:� Precedex
�
NEURO: sedated on Precedex, pupils +2mm B/L
RESP: #8OT @21cm> 14/550/60%/5. Lungs clear B/L. 1 mediastinal and 1 Left pleural (50cc on arrival) chest tubes to -20cm suction. Sanguineous drainage
CV: RRR +S1, S2, no S3, no�rub, no murmur. Dermabond to median sternotomy. RIJ w/o [place]
ABD: round, soft, no BS
EXT: no edema, +1/4 DP pulses B/L, no femoral bruit, RLE JYOTSNA wrap intact; Left radial A-line intact
: Leon with clear yellow urine
�
A/P: POD #0 s/p CABG x 3 PINEDA-LAD & diag; SVG-OM; Left atrial appendage #35mm clip; [facility] MAZE
ELINA: EF�50%, trace MR
- wean and extubate
- wean Levophed
# CAD/NSTEMI
- ASA within 6 hours of surgery
-will begin ASA/Plavix, and beta-skyler (as HR/BP permit)
# Mild transaminitis (present on admission)
- hold statin/amiodarone and trend LFTs
�
# acute surgical blood loss anemia-expected
- Hb 10.8 stable
- trend CBC
# Pre-diabetes (A1C 6.0)
- insulin infusion x 48h, then transition to SSI
- cholesterol lowering carb controlled diet
# Pre-op atrial fibrillation
- maintaining sinus rhythm s/p clip/MAZE
- resume Amio as LFTs normalize
�
# Anxiety/Depression
- resume Lexapro 20mg daily starting 08/25
- continue Xanax prn
[2023-08-24] MEDS: CALCIUM CHLORIDE 10% SYRINGE 50 MG IV ×2 (16:09→16:30)
[2023-08-24] MEDS: CALCIUM CHLORIDE 10% SYRINGE 50 ML IV ×2 (16:09→16:30)
--- NOTE | 2023-08-24 16:10 | PTCARENOTE ---
Repeat 12 lead ekg: improvement noted: Dr. Miller here and aware. Remains on 2mcg levo. NSR
[2023-08-24 16:31] LABS: Glucose - Point of Care 80 mg/dl (70-99)
[2023-08-24] MEDS: PACERONE 200 MG PO ×2 (16:39→22:00)
[2023-08-24] MEDS: TYLENOL 650 MG PO ×3 (16:39→23:03)
[2023-08-24] MEDS: LOW STRENGTH ASPIRIN 81 MG PO (16:40)
[2023-08-24] MEDS: ZINACEF 750 MG IV (17:49)
[2023-08-24] MEDS: STERILE WATER FOR INJECTION 8.30000000000000071 ML IV (17:49)
[2023-08-24 19:05] LABS: Glucose - Point of Care 123 mg/dl (70-99)
[2023-08-24] MEDS: ROXICODONE 5 MG PO (19:09)
[2023-08-24] MEDS: SENOKOT-S 1 TABLET PO (20:05)
[2023-08-24] MEDS: NSS (PRESERVATIVE FREE) 8 ML IV (20:05)
[2023-08-24] MEDS: PEPCID 20 MG IV (20:05)
[2023-08-24] MEDS: LOPRESSOR 12.5 MG PO (20:05)
[2023-08-24] MEDS: BACTROBAN 2% OINTMENT 1 APPLIC NASAL (20:18)
--- NOTE | 2023-08-24 20:30 | PTCARENOTE ---
Received pt from rey RN. Walking rounds completed. Pt AAOx3. C/O sternal incisional pain-see MAR for medication administration. NSR on monitor, HR 70s. BP 110s-120s/60s. Epicardial A+V wires set to DDD back up 30/10. Heart tones audible. no
edema. +palpable pulses. Left radial brenna flushed and zeroed. RIJ cordis with slik maintained with NSS KVO. Pulse ox 99% on 4l NC. Lung sounds diminished bilaterally. CT x2 (Mediastinal and left pleural to one atrium) maintained at -20 cm wall
suction, draining red fluid. No cough or sputum. Abdomen soft/nontender. Hypoactive BS. Leon catheter present and maintained, draining adequate amount of clear, straw colored urine. All surgical sites C/D/I. Insulin gtt titrated per critical care
glycemic protocol. See work list for full assessment, VS and I&Os.
[2023-08-24] MEDS: LOW STRENGTH ASPIRIN PO (20:49)
[2023-08-24] MEDS: PROTONIX PO (20:49)
[2023-08-24] MEDS: SENOKOT PO (20:49)
[2023-08-24] MEDS: TOPROL XL PO (20:50)
[2023-08-24 21:02] LABS: Glucose - Point of Care 101 mg/dl (70-99)
[2023-08-24] MEDS: ROXICODONE 10 MG PO (23:03)
[2023-08-24 23:08] LABS: Glucose - Point of Care 101 mg/dl (70-99)
[2023-08-25] VITALS (15 sets, daily range): BP systolic 73–108; BP diastolic 52–97; PULSE 77; O2SAT 95; BMI 24.0
[2023-08-25 01:02] LABS: Glucose - Point of Care 100 mg/dl (70-99)
[2023-08-25] MEDS: MORPHINE SULFATE 2 MG IV (01:08)
--- NOTE | 2023-08-25 01:13 | PTCARENOTE ---
No change in pt previous assessment. NSR on monitor. Pt medicated for pain-see SEP.
[2023-08-25] MEDS: ZINACEF 750 MG IV ×2 (02:08→09:31)
[2023-08-25] MEDS: STERILE WATER FOR INJECTION 8.30000000000000071 ML IV ×2 (02:09→09:31)
[2023-08-25 03:13] LABS: Glucose - Point of Care 117 mg/dl (70-99)
[2023-08-25 03:34] LABS: Hematocrit 27.9 % (37.0-47.0); Hemoglobin 9.7 g/dL (12.0-16.0); Mean Corp Hgb Conc. 34.8 g/dL (33.0-37.0); Mean Corpuscular Volume 86.4 fL (81.0-99.0); Platelet Count 221 10^3/uL (130-400); Red Blood Cell Count 3.23 10^6/uL (4.20-5.40); Red Cell Dist. Width 13.3 % (11.5-14.5); White Blood Cell Count 15.8 10^3/uL (4.8-10.8)
--- NOTE | 2023-08-25 03:45 | PTCARENOTE ---
No change in previous assessment. VSS. AM labs and EKG obtained. Pt with 10 beat run VT, CVPA Tsilina notified. No new orders at this time.
[2023-08-25 04:11] LABS: ALT (SGPT) 71 U/L (0-35); AST (SGOT) 123 U/L (14-36); Albumin 3.9 g/dl (3.5-5.0); Alkaline Phosphatase 51 U/L (38-126); Blood Urea Nitrogen 18 mg/dl (7-17); Calcium 9.2 mg/dl (8.4-10.2); Carbon Dioxide 22 mmol/L (22-30); Chloride 109 mmol/L (98-107); Direct Bilirubin 0.6 mg/dl (0.0-0.4); Estimated Creatinine Clearance 56 ml/min; Glucose 106 mg/dl (70-99); Magnesium 2.1 mg/dl (1.6-2.3); Potassium 4.5 mmol/L (3.5-5.1); Sodium 136 mmol/L (135-145); Total Bilirubin 1.3 mg/dl (0.2-1.3); Total Protein 5.9 g/dl (6.3-8.2); eGFR > 60.00
--- NOTE | 2023-08-25 04:32 | W.PN.CT ---
Today's Communication / Plan
-
-pod #1
-10 beat NSVT overnight- asymptomatic (K and Mg wnl). Remains in nsr
-abnormal postop ECG - improved, postop Echo ok
-drips: insulin
-CT output: L pleur and med 130/310 in 12/24 hrs (no air leak)
-deline
-continue insulin
-d/c Leon
-follow LFTs (holding statin and Amio)- AST slightly higher - 123 today (70 on 08/23), ALT 71 (110), ALkP 51 (62)
-current meds (ASA, Plavix, Lopressor)
-encourage IS, OOB
Assessment / Plan
-
Assessment:
- s/p CABG x 3 [id number]; SVG-OM; Left atrial appendage #35mm clip; [facility] on 08/24/[address] Miller, pod #1
- ELINA: EF 50-55%, no change post, no new wma. Leila free of clot, complete occlusion post clip
72 y/o F, transferred from [facility] on 08/21/23
-Multivessel CAD (involving LAD, CX and distal LM)
-NSTEMI @ [facility]
-Afib/flutter on admission to [facility] 08/14/23
-LVEF 50-55%
-Recent influenza A virus (completed course of Tamiflu @ [facility])
-Recent COVID (06/2024)
-Iodinated Contrast Media Allergy (Intermediate, Verified 08/21/23 10:43)
-PCN allergy (rash)
-Anxiety/depression
-Prediabetes (A1C 6.0)
-GERD
-Transaminitis -improved after statin held
-ETOH use (admits to at least 3 drinks every other day)
-Former tobacco use
-Occasional marijuana use
-Diverticulosis
-Spinal stenosis
-Left adrenal mass (stable, 9mm, per CTA 08/14/23)
-Left Ovarian cyst (2.8 cm, per CTA 08/14/23)
-Abnormal postop ECG - with unremarkable postop Echo (nl LVEF 55-60%, no regional wma)-follow-up ECG improved
-Acute postop blood loss anemia - no active bleed, no transfusion
-Acute postop atelectasis
-Acute postop hypovolemia
Discussed patient care with: Nursing and Care Team
Subjective
Procedure
- s/p CABG x 3 PINEDA-LAD & diag; SVG-OM; Left atrial appendage #35mm clip; [facility] MA[facility] on 08/24/[address] Miller
-
Date of Service: August 25, 2023
Objective Data
-
PT 18.8 Sec (11.4-14.6) H 08/24/23 11:49
INR 1.56 08/24/23 11:49
APTT 31.8 Sec (23.4-35.0) 08/24/23 11:49
Vital Signs
Vital Signs
Temp Pulse Resp BP Pulse Ox
99.6 F 76 22 119/73 98
08/25/23 01:00 08/25/23 01:00 08/25/23 01:00 08/24/23 20:05 08/25/23 01:00
CT Intake/Output/Weight
08/24/23 08/24/23 08/25/23
06:59 18:59 06:59
Intake Total 717.6 / 868.2 150.6 / 868.2
Output Total 1280 / 2160 880 / 2160
Balance -562.4 / -1291.8 -729.4 / -1291.8
SaO2: 98
Physical Exam
-
General: Awake and AOx3
Cardiovascular: Regular rate & rhythm, No Murmurs and Rub
Respiratory: Decreased Breath Sounds
Extremities: No Edema (2+ DP b/l)
Abdomen: soft, nontender, + bowel sounds
Data Reviewed
-
Lab Results: Results Reviewed
Medications: Active Meds Reviewed
Chest X-Ray: Report Reviewed and Image Reviewed
ECG: Report Reviewed and Image Reviewed
[2023-08-25 05:07] LABS: Glucose - Point of Care 86 mg/dl (70-99)
[2023-08-25] MEDS: ROXICODONE 5 MG PO ×2 (05:08→13:20)
[2023-08-25] MEDS: TYLENOL 650 MG PO ×2 (05:08→20:28)
[2023-08-25] MEDS: ZOFRAN 4 MG IV (06:22)
--- NOTE | 2023-08-25 07:00 | PTCARENOTE ---
Bedside walking rounds report received. Patient seen on rounds oob in chair and tolerating well: ct surgical rounds: pain issues reviewed with ct surgical staff/TEXTILE CONVERSION MANAGER: new orders received. Room air. NSR. Temp epicardial A/V wires for backup rate of
30bpm/10/10: sensing appropriately. Chest tubes left pleural and mediastinal chest tubes to 1 pleur evac and -20 wall suction: no dumping. See flowrecord for remaining assessments.
[2023-08-25 07:39] LABS: Glucose - Point of Care 136 mg/dl (70-99)
--- NOTE | 2023-08-25 07:42 | W.PN.CD ---
Today's Communication / Plan
-
Pain control.
Continue current meds. Possible diuretics tomorrow.
Encourage incentive spirometry and ambulation as tolerated.
Chest tube management per CT surgery.
Impression / Plan
-
Impression/Plan: 72 y/o female with GERD, anxiety and recently influenza A positive, transferred from [facility] with NSTEMI and MV CAD for CABG. She did have brief AF-RVR which spontaneously converted at [facility].
#Coronary artery disease
-New diagnosis, severe.
-S/P 3V CABG (Sequential PINEDA to diagonal to LAD, SVG to OM).
-ST elevation in leads I, aVL yesterday. Echo shows normal wall motion.
-Routine post operative care per CT surgery. Pain control.
-Encourage incentive spirometry and ambulation when able.
-Continue amiodarone, aspirin, metoprolol.
-She may benefit from diuresis tomorrow.
#Paroxysmal AFIB
-Currently in NSR.
-Rate control with metoprolol.
-S/P [facility] MAZE, LAAL (#35 Atriclip).
-[id number] score = 3 (age x1, female, and CAD).
-Therapeutic anticoagulation when appropriate with surgery.
#Recent Flu A
-Acute, resolved.
-Required oseltamivir.
#Anxiety/depression
-Chronic, stable.
-Continue escitalopram.
Subjective/Interval History:
3V CABG, [facility] MA[facility], LAAL yesterday.
Weight is up 2 kg.
DATA:
TTE, 08/24/2023:
CONCLUSIONS
�Normal left ventricular chamber size.� Normal left ventricular systolic
�function.
�Left ventricular ejection fraction is 55-60%.
�No prior study available for comparison.
Physical Exam
Vital Signs/Labs
Vital Signs
Temp Pulse Resp BP Pulse Ox
37.2 C 74 18 87/59 93
08/25/23 07:39 08/25/23 07:39 08/25/23 07:39 08/25/23 03:26 08/25/23 07:39
08/23/23 08/24/23 08/25/23
11:59 11:59 11:59
Actual Weight 68.2 kg 67.4 kg 69.5 kg
08/25/23 03:06
08/25/23 03:06
PT 18.8 Sec (11.4-14.6) H 08/24/23 11:49
INR 1.56 08/24/23 11:49
APTT 31.8 Sec (23.4-35.0) 08/24/23 11:49
Magnesium 2.1 mg/dl (1.6-2.3) 08/25/23 03:06
Triglycerides 84 mg/dl (10-149) 08/22/23 03:36
LDL Cholesterol, Calc 47 mg/dl 08/22/23 03:36
VLDL Cholesterol, Calc 16 mg/dl (0-30) 08/22/23 03:36
HDL Cholesterol 54 mg/dl 08/22/23 03:36
08/21/23
10:45
[id number] Pept 418
Physical Exam
Constitutional: No acute distress and Comfortable
EENT: Anicteric and Moist mucous membranes
Cardiovascular: Rhythm & rate is regular, Pedal edema is absent, JVD pressure is normal, S1S2 is normal and Murmur/rub/gallop absent
Respiratory: Other (Decreased throughout.)
GI: Soft, Distention absent, Flat, Non tender and Normal bowel sounds
Neuro/Psych: AO x 3
Data Reviewed
-
Date of Service: August 25, 2023
Medical Decision Making: Reviewed Test Results, Independent Historian Assessment, Test Interpretation and Review of Case with other Provider
EKG: Tracing Personally Visualized and interpreted and Report Reviewed by me
Echo: Tracing Personally Visualized and interpreted and Report Reviewed by me
X-Ray/CT/US/MRI/NUC/PET: Image Personally Visualized and interpreted and Report Reviewed by me
Medical Tests (PFT, Pathology etc): Report Reviewed by me
Labs: Labs Reviewed by me
Old Records: Reviewed
--- NOTE | 2023-08-25 07:46 | W.PN.INTV ---
Today's Communication / Plan
Recommendations
Tolerated extubation
Some anxiety
Wean oxygen
Increase activity
deline
Insulin drip per protocol
Follow LFTs
Likely transfer to telemetry-retail aide will sign off-call pulmonary if respiratory issues arise
Assessment
-
72-year-old female with underlying anxiety and depression, paroxysmal atrial fibrillation and recent influenza who was diagnosed with severe CAD and underwent CABG-retail aide consulted for postoperative ventilator/critical care management 08/24/2023.
Assessment
Severe CAD
Status post CABG x 5-NREY-kjsapahc/LAD, SVG-OM, left atrial clip, MAZE-Dr. Miller 08/24/2023
Mild anemia-hemoglobin 9
Mild hyperglycemia
Conditions present prior to admission:
Hypertension.
Hyperlipidemia.
Anxiety.
Depression.
PAF.
GERD.
Plan
Tolerated extubation
Wean FiO2
Encourage incentive spirometry
Increase activity
Aspiration precautions
Pulmonary artery catheter and arterial line will be removed
Pressors have been weaned
Continue to monitor chest tube output
Follow hemoglobin
Continue to follow platelet count and coags
Transfuse blood product as needed
CT surgery following chest tubes as well
Follow blood sugar
Insulin supplementation continues as needed
Early nutrition
Early mobilization
DVT prophylaxis
Patient will be transferred to telemetry phase-call pulmonary if respiratory issues arise
Reviewed the patient's pertinent medical records including radiographs, microbiology, laboratory evaluations, and discussion with primary team, and critical care nursing.
Diagnostic data:
Chest x-ray 08/22/2023-NAD
Chest x-ray 08/24/2023-lungs appear hyperinflated, parenchymal opacification left midlung field likely atelectasis
Transesophageal echocardiogram 08/24/2023-EF 50%, grade 3 atheromatous disease aortic arch
FEV1 2.7-109%, FVC 3.39-103%-normal flow volume loop
Subjective Dataa
Subjective Data
Date of Service:
Date of Service: August 25, 2023
Chief Complaint: Undergraduate Intern Follow Up and Pulmonary Follow Up
Subjective:
Tolerated extubation, some anxiety, some pain control issues, no shortness of breath, abdominal pain
Review of Systems
General: Other (Per HPI)
Objective Data
Data Reviewed
Vital Signs / I&O / Oxygen:
Vital Signs
Temp Pulse Resp BP Pulse Ox
99 F 74 18 87/59 93
08/25/23 07:39 08/25/23 07:39 08/25/23 07:39 08/25/23 03:26 08/25/23 07:39
Intake and Output
08/24/23 08/25/23 08/26/23
06:59 06:59 06:59
Intake Total 487 / 487 964.8 / 964.8
Output Total 2450 / 2450
Balance 487 / 487 -1485.2 / -1485.2
SaO2 [CPAP/PSV] 99
SaO2 [SIMV] 99
SaO2 93
Nasal Cannula flow liters per 2
minute
Physical Exam
General: Respiratory Distress (n) and Comfortable
HEENT: Normocephalic, Anicteric and Moist Mucous Membranes
Cardiovascular: Regular Rhythm
Respiratory: Crackles (Few basilar), Rhonchi (n), Non-Labored Respirations, Accessory Resp Muscle Use (n) and Stridor (n)
GI: Non Distended and Non Tender
Neurology: Awake, Alert and No Motor Deficits
Skin: Warm, Good Color and Cyanosis (n)
Labs/Micro/Reports
Lab Data
08/25/23 03:06
08/25/23 03:06
Laboratory Results
08/24/23 08/24/23
11:49 14:44
PT 18.8 H
INR 1.56
APTT 31.8
pH 7.39 7.36
pCO2 33 37 H
pO2 146 H 160 H
HCO3 20.0 L 20.9 L
O2 Delivery Level
Microbiology
08/21/23 20:46 Nose MRSA Screen - Final
No Methicillin Resistant Staphylococcus aureus isolated.
[2023-08-25] MEDS: NSS (PRESERVATIVE FREE) 8 ML IV (08:02)
[2023-08-25] MEDS: PEPCID 20 MG IV (08:03)
[2023-08-25] MEDS: LEXAPRO 20 MG PO (08:05)
[2023-08-25] MEDS: PLAVIX 75 MG PO (08:05)
[2023-08-25] MEDS: SENOKOT-S 1 TABLET PO ×2 (08:05→20:28)
[2023-08-25] MEDS: MAGNESIUM OXIDE 500 MG PO ×2 (08:05→20:28)
[2023-08-25] MEDS: LOPRESSOR 12.5 MG PO (08:05)
[2023-08-25] MEDS: LOW STRENGTH ASPIRIN 81 MG PO (08:05)
[2023-08-25] MEDS: TYLENOL PO ×4 (08:06→23:49)
[2023-08-25] MEDS: BACTROBAN 2% OINTMENT 1 APPLIC NASAL ×2 (08:07→20:28)
--- NOTE | 2023-08-25 08:12 | W.PN.ANS.POP ---
Anesthesia Post Operative
- Anesthesia Post Op Note
Vital Signs Stable-See Nursing Note: Yes
Airway Patent: Yes
Adequate Pain Control: Yes
Change in Mental Status: No
Current Postoperative Nausea & Vomiting: No
Anesthesia Complications: No
General Anesthetic Recall: No
Unplanned Admission: No
Post Op Hydration Adequate: Yes
[2023-08-25] MEDS: PROTONIX 40 MG PO (09:30)
--- NOTE | 2023-08-25 09:30 | PTCARENOTE ---
Leon catheter dc and left radial arterial line dc.
[2023-08-25] MEDS: TORADOL 15 MG IV ×2 (09:34→15:36)
[2023-08-25 09:47] LABS: Glucose - Point of Care 99 mg/dl (70-99)
--- NOTE | 2023-08-25 10:30 | PTCARENOTE ---
Assisted patient back to bed. Mediastinal chest tube sutures dc/chest tube dc: left pleural chest tube placed to bulb drain suction. Temp epicardial A/V wires disconnected and isolated and insulated. [employer] pacing box readily accessible in room.
[2023-08-25] MEDS: NSS IV (11:48)
[2023-08-25 11:56] LABS: Glucose - Point of Care 106 mg/dl (70-99)
--- NOTE | 2023-08-25 12:00 | PTCARENOTE ---
No acute changes. Vitals stable. NSR. OOB chair then ambulated to bathroom: voided moderate amount clear yellow urine.
--- NOTE | 2023-08-25 15:01 | CM ---
CM following for DC planning needs.
Pt. is POD#1 from CABGx3.
Reviewed DC plan. Plan is to DC to sister's home nearby ([address] [place], [place]) with CT Transitional Care RN.
Will cont. to follow.
--- NOTE | 2023-08-25 16:07 | PTCARENOTE ---
No acute changes. NSR. Room air. Toradol IV effective for pain relief as documented
[2023-08-25 17:14] LABS: Glucose - Point of Care 142 mg/dl (70-99)
--- NOTE | 2023-08-25 20:00 | PTCARENOTE ---
Pt received from rey RN. Walking rounds completed. Pt OOB sitting in chair. AAOx3. NSR on monitor. Heart tones audible. + palpable pulses. No edema noted. RIJ cordis maintained with NSS KVO. PIV flushed and patent. Pulse ox 91% on RA. Lung
sounds diminished. No cough noted. Left pleural CT to bulb suction. Pt voiding spontaneously without difficulty. All surgical sites C/D/I. See worklist for full assessment and interventions.
[2023-08-25] MEDS: LOPRESSOR PO (20:27)
[2023-08-25] MEDS: XANAX 0.25 MG PO (20:28)
[2023-08-26] VITALS (30 sets, daily range): BP systolic 73–133; BP diastolic 51–92; PULSE 67; O2SAT 94; BMI 24.2
--- NOTE | 2023-08-26 00:20 | PTCARENOTE ---
No change in pt previous assessment. VSS. NSR on monitor. Pulse ox 96% on 2L NC. pt resting comfortably at this time.
[2023-08-26] MEDS: NSS 250 IV (00:22)
[2023-08-26] MEDS: TORADOL 15 MG IV (01:36)
[2023-08-26 03:24] LABS: Hematocrit 21.8 % (37.0-47.0); Hemoglobin 7.8 g/dL (12.0-16.0); Mean Corp Hgb Conc. 35.8 g/dL (33.0-37.0); Mean Corpuscular Hgb 30.8 pg (27.0-31.0); Mean Corpuscular Volume 86.2 fL (81.0-99.0); Mean Platelet Volume 10.7 fL (7.4-10.4); Platelet Count 178 10^3/uL (130-400); Red Blood Cell Count 2.53 10^6/uL (4.20-5.40); Red Cell Dist. Width 13.5 % (11.5-14.5); White Blood Cell Count 11.9 10^3/uL (4.8-10.8)
[2023-08-26] MEDS: LEVOPHED 250 IV (03:31)
--- NOTE | 2023-08-26 03:35 | PTCARENOTE ---
No change in pt previous assessment. NSR on monitor. AM labs obtained and sent. Pt BP 70s/50s MAP<65. CVPA made aware, new order received to start Levophed @ 2 mcg/min.
[2023-08-26 03:47] LABS: ALT (SGPT) 44 U/L (0-35); AST (SGOT) 64 U/L (14-36); Albumin 2.9 g/dl (3.5-5.0); Alkaline Phosphatase 40 U/L (38-126); Blood Urea Nitrogen 30 mg/dl (7-17); Calcium 8.8 mg/dl (8.4-10.2); Carbon Dioxide 24 mmol/L (22-30); Chloride 102 mmol/L (98-107); Direct Bilirubin 0.4 mg/dl (0.0-0.4); Estimated Creatinine Clearance 46 ml/min; Glucose 116 mg/dl (70-99); Potassium 3.7 mmol/L (3.5-5.1); Sodium 134 mmol/L (135-145); Total Bilirubin 1.5 mg/dl (0.2-1.3); Total Protein 4.9 g/dl (6.3-8.2); eGFR 53.72
[2023-08-26] MEDS: TYLENOL PO (04:37)
--- NOTE | 2023-08-26 06:20 | W.PN.CT ---
Today's Communication / Plan
-
-pod #2
-hypotensive overnight (re-checked with manual BP cuff) - restarted Levo @ 3, appears asymptomatic
-h/h today 7.1/21.8 (9.7/27.9 on 08/25) with hypotension and mild increase in Cr - consider 1pRBC
-held BB d/t low BP
-Amio and statin are held d/t mildly elevated LFTs - improving
-follow Cr - 1.1 today (0.9 on 08/25)
-wean off Levo as tolerated
-encourage IS, OOB
Assessment / Plan
-
Assessment:
- s/p CABG x 3 [id number]; SVG-OM; Left atrial appendage #35mm clip; [facility] on 08/24/[address] Miller, pod #2
- ELINA: EF 50-55%, no change post, no new wma. Leila free of clot, complete occlusion post clip
72 y/o F, transferred from [facility] on 08/21/23
-Multivessel CAD (involving LAD, CX and distal LM)
-NSTEMI @ [facility]
-Afib/flutter on admission to [facility] 08/14/23
-LVEF 50-55%
-Recent influenza A virus (completed course of Tamiflu @ [facility])
-Recent COVID (06/2024)
-Iodinated Contrast Media Allergy (Intermediate, Verified 08/21/23 10:43)
-PCN allergy (rash)
-Anxiety/depression
-Prediabetes (A1C 6.0)
-GERD
-Transaminitis -improved after statin held
-ETOH use (admits to at least 3 drinks every other day)
-Former tobacco use
-Occasional marijuana use
-Diverticulosis
-Spinal stenosis
-Left adrenal mass (stable, 9mm, per CTA 08/14/23)
-Left Ovarian cyst (2.8 cm, per CTA 08/14/23)
-Abnormal postop ECG - with unremarkable postop Echo (nl LVEF 55-60%, no regional wma)-follow-up ECG improved
-Acute postop blood loss anemia - no active bleed, no transfusion
-Acute postop atelectasis
-Acute postop hypovolemia with hypotension
-Acute postop hypokalemia
Discussed patient care with: Nursing and Care Team
Subjective
Procedure
- s/p CABG x 3 PINEDA-LAD & diag; SVG-OM; Left atrial appendage #35mm clip; [facility] on 08/24/[address] Miller
-
Date of Service: August 26, 2023
Objective Data
-
PT 18.8 Sec (11.4-14.6) H 08/24/23 11:49
INR 1.56 08/24/23 11:49
APTT 31.8 Sec (23.4-35.0) 08/24/23 11:49
Vital Signs
Vital Signs
Temp Pulse Resp BP Pulse Ox
98.3 F 63 16 94/62 96
08/25/23 23:20 08/26/23 01:00 08/25/23 20:11 08/25/23 23:20 08/26/23 01:00
CT Intake/Output/Weight
08/25/23 08/25/23 08/26/23
06:59 18:59 06:59
Intake Total 247.2 / 964.8 1283 / 1343 60 / 1343
Output Total 1170 / 2450 160 / 170 10 / 170
Balance -922.8 / -1485.2 1123 / 1173 50 / 1173
SaO2: 96
Physical Exam
-
General: Awake and AOx3
Cardiovascular: Regular rate & rhythm, No Murmurs and Rub
Respiratory: Decreased Breath Sounds
Abdomen: soft, nontender, + bowel sounds
Extremities: No Edema (2+ DP b/l)
Data Reviewed
-
Lab Results: Results Reviewed
Medications: Active Meds Reviewed
Chest X-Ray: Report Reviewed and Image Reviewed
ECG: Report Reviewed and Image Reviewed
--- NOTE | 2023-08-26 07:17 | W.PN.CD ---
Today's Communication / Plan
-
I recommend we transfuse one unit of PRBC's and give furosemide 40 mg IV.
Repeat CBC post transfusion.
Monitor I/O, daily weights.
Check FENa.
Encourage ambulation/incentive spirometry.
Impression / Plan
-
Impression/Plan: 72 y/o female with GERD, anxiety and recently influenza A positive, transferred from [facility] with NSTEMI and MV CAD for CABG. She did have brief AF-RVR which spontaneously converted at [facility].
#Coronary artery disease
-New diagnosis, severe.
-S/P 3V CABG (Sequential PINEDA to diagonal to LAD, SVG to OM).
-ST elevation in leads I, aVL yesterday. Echo shows normal wall motion.
-Routine post operative care per CT surgery. Pain control.
-Encourage incentive spirometry and ambulation when able.
-Continue aspirin, metoprolol.
-Amiodarone on hold due to transaminitis.
-Continue norepinephrine for BP support.
-Favor transfusion coupled with a dose of furosemide given her dyspnea, NSTEMI, rales on exam and increased weight.
#Paroxysmal AFIB
-Currently in NSR.
-Rate control with metoprolol.
-S/P [facility] MAZE, LAAL (#35 Atriclip).
-[id number] score = 3 (age x1, female, and CAD).
-Therapeutic anticoagulation when appropriate with surgery.
#Anemia
-Acute, post operative.
-DDx includes dilution + procedural + extra source?
-Given her initial presentation (NSTEMI) and surgery, I favor transfusion of one unit of PRBC's and furosemide 40 mg IV.
#GLENDA
-Mild.
-Check UA, FENa (limited utility if this is due to poor forward flow vs. true intravascular depletion).
#Recent Flu A
-Acute, resolved.
-Required oseltamivir.
#Anxiety/depression
-Chronic, stable.
-Continue escitalopram.
Critical Care Time = 32 minutes.
Subjective/Interval History:
Hypotensive overnight (73/51 @ 03:01).
Restarted on norepinephrine.
Hbg has fallen to 7.8 <-- 9.7 <-- 10.8.
Pain control with IV toradol.
Weight is up 0.6 kg from yesterday, 1.7 kg from admission (70.1 <-- 69.5 <-- 68.4).
BUN up to 30. Creatinine up to 1.1.
LFT's improving.
Her primary complaint is chest tube pain and dyspnea with exertion. She is unsure if she is orthopneic.
DATA:
TTE, 08/24/2023:
CONCLUSIONS
�Normal left ventricular chamber size.� Normal left ventricular systolic
�function.
�Left ventricular ejection fraction is 55-60%.
�No prior study available for comparison.
Physical Exam
Vital Signs/Labs
Vital Signs
Temp Pulse Resp BP Pulse Ox
36.6 C 66 14 92/64 97
08/26/23 03:32 08/26/23 06:00 08/26/23 03:32 08/26/23 06:00 08/26/23 06:00
08/24/23 08/25/23 08/26/23
11:59 11:59 11:59
Actual Weight 67.4 kg 69.5 kg 70.1 kg
08/26/23 03:11
08/26/23 Unknown
PT 18.8 Sec (11.4-14.6) H 08/24/23 11:49
INR 1.56 08/24/23 11:49
APTT 31.8 Sec (23.4-35.0) 08/24/23 11:49
Magnesium 2.1 mg/dl (1.6-2.3) 08/25/23 03:06
Triglycerides 84 mg/dl (10-149) 08/22/23 03:36
LDL Cholesterol, Calc 47 mg/dl 08/22/23 03:36
VLDL Cholesterol, Calc 16 mg/dl (0-30) 08/22/23 03:36
HDL Cholesterol 54 mg/dl 08/22/23 03:36
08/21/23
10:45
Bgg-I-[id number] Pept 418
Physical Exam
Constitutional: No acute distress and Comfortable
EENT: Anicteric and Moist mucous membranes
Cardiovascular: Rhythm & rate is regular, Pedal edema is absent, JVD present, S1S2 is normal and Murmur/rub/gallop absent
Respiratory: Wheeze Absent, Rhonchi Absent, Labored respirations (Mild.) and Crackles Present
GI: Soft, Distention absent, Flat, Non tender and Normal bowel sounds
Neuro/Psych: AO x 3
Data Reviewed
-
Date of Service: August 26, 2023
Medical Decision Making: Reviewed Test Results, Independent Historian Assessment, Test Interpretation and Review of Case with other Provider
EKG: Tracing Personally Visualized and interpreted
Echo: Tracing Personally Visualized and interpreted and Report Reviewed by me
X-Ray/CT/US/MRI/NUC/PET: Image Personally Visualized and interpreted and Report Reviewed by me
Medical Tests (PFT, Pathology etc): Report Reviewed by me
Labs: Labs Reviewed by me
Old Records: Reviewed
[2023-08-26 07:50] LABS: Glucose - Point of Care 116 mg/dl (70-99)
[2023-08-26] MEDS: LOW STRENGTH ASPIRIN 81 MG PO (08:46)
[2023-08-26] MEDS: SENOKOT-S 1 TABLET PO ×2 (08:46→19:57)
[2023-08-26] MEDS: MAGNESIUM OXIDE 500 MG PO ×2 (08:46→19:57)
[2023-08-26] MEDS: PROTONIX 40 MG PO (08:46)
[2023-08-26] MEDS: TYLENOL 650 MG PO ×4 (08:46→19:57)
[2023-08-26] MEDS: LEXAPRO 20 MG PO (08:46)
[2023-08-26] MEDS: PLAVIX 75 MG PO (08:46)
[2023-08-26] MEDS: BACTROBAN 2% OINTMENT 1 APPLIC NASAL ×2 (08:47→19:57)
--- NOTE | 2023-08-26 09:48 | PTCARENOTE ---
assumed care of pt from previous shift RN, sinus rhythm on tele, + peripheral pulses, trace edema, insulated pacing wires. Lungs w fine crackles at bases. +bs, tolerating PO intake, voids spontaneously. Right IJ cordis w KVO and levo infusing, PIV
leaking- removed. LP CT to bulb to be removed. Plan of care reviewed w the pt and questions encouraged.
--- NOTE | 2023-08-26 11:48 | PTCARENOTE ---
1 unit PRBC transfused as ordered, pt tolerated.
[2023-08-26] MEDS: NSS 500 IV (11:52)
[2023-08-26] MEDS: ProAmatine 5 MG PO ×2 (12:50→18:14)
[2023-08-26] MEDS: VITAMIN C 500 MG PO (15:37)
[2023-08-26] MEDS: FERRLECIT 110 MG IV (15:37)
[2023-08-26] MEDS: XANAX 0.25 MG PO ×2 (15:55→22:09)
--- NOTE | 2023-08-26 16:14 | PTCARENOTE ---
VSS, sinus rhythm maintained on tele. assisted pt w ambulation in hallway.
--- NOTE | 2023-08-26 19:36 | PTCARENOTE ---
Assumed care of patient at 1900, patient AAO, POD#2 s/p CVOR. Surgical sites WNL, SR on monitor, VSS, lungs clear/diminished bilaterally, Occ non prod cough, SPO2 95% on RA. Abd soft, non tender, voiding in bathroom without issue. [place]LETON equally,
palpable distal pulses. Cordis assessed and maintained. Full assessment completed as documented, plan of care discussed with patient verbalizing understanding.
[2023-08-26] MEDS: ROXICODONE 5 MG PO (20:18)
[2023-08-26] MEDS: MUCINEX 600 MG PO (20:35)
[2023-08-26 22:12] LABS: Glucose - Point of Care 118 mg/dl (70-99)
--- NOTE | 2023-08-26 23:34 | PTCARENOTE ---
Patient resting comfortably, VSS, no acute changes in assessment.
[2023-08-27] VITALS (7 sets, daily range): BP systolic 102–144; BP diastolic 66–119; BMI 24.4
[2023-08-27] MEDS: TYLENOL PO (02:56)
[2023-08-27] MEDS: ROXICODONE 5 MG PO (03:06)
[2023-08-27] MEDS: TYLENOL 650 MG PO ×2 (03:06→20:16)
[2023-08-27 03:41] LABS: Hematocrit 26.8 % (37.0-47.0); Mean Corp Hgb Conc. 35.8 g/dL (33.0-37.0); Mean Corpuscular Hgb 31.1 pg (27.0-31.0); Mean Corpuscular Volume 86.7 fL (81.0-99.0); Mean Platelet Volume 10.9 fL (7.4-10.4); Platelet Count 204 10^3/uL (130-400); Red Blood Cell Count 3.09 10^6/uL (4.20-5.40); Red Cell Dist. Width 13.5 % (11.5-14.5); White Blood Cell Count 11.1 10^3/uL (4.8-10.8)
--- NOTE | 2023-08-27 03:51 | PTCARENOTE ---
no acute changes in assessment, VSS.
[2023-08-27 03:52] LABS: Hemoglobin 9.6 g/dL (12.0-16.0)
--- NOTE | 2023-08-27 03:55 | W.PN.CT ---
Today's Communication / Plan
-
-pod #3
-no issues overnight
-s/p 1 pRBC 2/10
-hypotension improved, on Midodrine 5 tid
-holding BB for hypotension, holding Amio and statin for mildly elevated LFTs
-consider starting statin and follow LFTs
-encourage IS, OOB
Assessment / Plan
-
Assessment:
- s/p CABG x 3 [id number]; SVG-OM; Left atrial appendage #35mm clip; [facility] on 08/24/[address] Miller, pod #3
- ELINA: EF 50-55%, no change post, no new wma. Leila free of clot, complete occlusion post clip
72 y/o F, transferred from [facility] on 08/21/23
-Multivessel CAD (involving LAD, CX and distal LM)
-NSTEMI @ [facility]
-Afib/flutter on admission to [facility] 08/14/23
-LVEF 50-55%
-Recent influenza A virus (completed course of Tamiflu @ [facility])
-Recent COVID (06/2024)
-Iodinated Contrast Media Allergy (Intermediate, Verified 08/21/23 10:43)
-PCN allergy (rash)
-Anxiety/depression
-Prediabetes (A1C 6.0)
-GERD
-Transaminitis -improved after statin held
-ETOH use (admits to at least 3 drinks every other day)
-Former tobacco use
-Occasional marijuana use
-Diverticulosis
-Spinal stenosis
-Left adrenal mass (stable, 9mm, per CTA 08/14/23)
-Left Ovarian cyst (2.8 cm, per CTA 08/14/23)
-Abnormal postop ECG - with unremarkable postop Echo (nl LVEF 55-60%, no regional wma)-follow-up ECG improved
-Acute postop blood loss anemia - no active bleed, s/p 1 pRBC on 08/26 for Hg 7.8
-Acute postop atelectasis
-Acute postop hypovolemia with hypotension- improved after blood transfusion
-Acute postop hypokalemia
-GLENDA- resolved
Discussed patient care with: Nursing and Care Team
Subjective
Procedure
- s/p CABG x 3 PINEDA-LAD & diag; SVG-OM; Left atrial appendage #35mm clip; [facility] on 08/24/[address] Miller
-
Date of Service: August 27, 2023
Objective Data
-
Lab Results
08/27/23 03:13
PT 18.8 Sec (11.4-14.6) H 08/24/23 11:49
INR 1.56 08/24/23 11:49
APTT 31.8 Sec (23.4-35.0) 08/24/23 11:49
Vital Signs
Vital Signs
Temp Pulse Resp BP Pulse Ox
98.7 F 69 22 119/79 93
08/27/23 03:50 08/27/23 03:01 08/27/23 03:50 08/27/23 03:01 08/27/23 03:50
CT Intake/Output/Weight
08/26/23 08/26/23 08/27/23
06:59 18:59 06:59
Intake Total 100 / 1383 720 / 720
Output Total 10 / 170
Balance 90 / 1213 720 / 720
SaO2: 93
Physical Exam
-
General: Awake and AOx3
Cardiovascular: Regular rate & rhythm, No Murmurs and No Rub
Respiratory: Rales (at bases b/l, no wheeze)
Sternum: Stable
Incision: Clean, Dry and Dressing Intact
Extremities: No Edema
Abdomen: soft, nontender, nondistended, increased bowel sounds
Data Reviewed
-
Lab Results: Results Reviewed
Medications: Active Meds Reviewed
Chest X-Ray: Report Reviewed and Image Reviewed
ECG: Report Reviewed and Image Reviewed
[2023-08-27 04:06] LABS: ALT (SGPT) 41 U/L (0-35); AST (SGOT) 54 U/L (14-36); Albumin 3.2 g/dl (3.5-5.0); Alkaline Phosphatase 56 U/L (38-126); Blood Urea Nitrogen 20 mg/dl (7-17); Calcium 8.7 mg/dl (8.4-10.2); Carbon Dioxide 26 mmol/L (22-30); Chloride 107 mmol/L (98-107); Direct Bilirubin 0.5 mg/dl (0.0-0.4); Estimated Creatinine Clearance 63 ml/min; Glucose 98 mg/dl (70-99); Potassium 3.8 mmol/L (3.5-5.1); Sodium 136 mmol/L (135-145); Total Bilirubin 1.3 mg/dl (0.2-1.3); Total Protein 5.5 g/dl (6.3-8.2); eGFR > 60.00
[2023-08-27] MEDS: SENOKOT-S 1 TABLET PO ×2 (08:44→20:17)
[2023-08-27] MEDS: ProAmatine 5 MG PO (08:44)
[2023-08-27] MEDS: TORADOL 15 MG IV (08:45)
[2023-08-27] MEDS: PROTONIX 40 MG PO (08:45)
[2023-08-27] MEDS: LOW STRENGTH ASPIRIN 81 MG PO (08:45)
[2023-08-27] MEDS: MUCINEX 600 MG PO ×2 (08:45→20:16)
[2023-08-27] MEDS: MAGNESIUM OXIDE 500 MG PO ×2 (08:45→20:16)
[2023-08-27] MEDS: LEXAPRO 20 MG PO (08:45)
[2023-08-27] MEDS: LIPITOR 40 MG PO (08:45)
[2023-08-27] MEDS: PLAVIX 75 MG PO (08:45)
[2023-08-27] MEDS: BACTROBAN 2% OINTMENT 1 APPLIC NASAL ×2 (08:45→20:16)
[2023-08-27] MEDS: VITAMIN C 500 MG PO (08:45)
--- NOTE | 2023-08-27 09:20 | PTCARENOTE ---
assumed care of pt from previous shift RN, sinus rhythm on tele, + peripheral pulses, no edema, insulated wires maintained. Lungs diminished, loose cough noted, coughing and deep breathing encouraged, pox 95% on RA. +bs, voids spontaneously. Post op
sites intact. Plan of care reviewed and questions encouraged.
[2023-08-27] MEDS: NSS IV (10:17)
--- NOTE | 2023-08-27 12:21 | PTCARENOTE ---
PIV placed, cordis removed as ordered. VSS, sinus rhythm maintained. Pain better controlled, ambulating in hallway.
[2023-08-27] MEDS: FERRLECIT 110 MG IV (14:49)
--- NOTE | 2023-08-27 15:08 | W.PN.CD ---
Today's Communication / Plan
-
trend LFT: start statin if stable/better
eliquis when safe post op
Impression / Plan
-
Impression/Plan: 72 y/o female with GERD, anxiety and recently influenza A positive, transferred from [facility] with NSTEMI and MV CAD for CABG. She did have brief AF-RVR which spontaneously converted at [facility].
#Coronary artery disease
-New diagnosis, severe.
-S/P 3V CABG (Sequential PINEDA to diagonal to LAD, SVG to OM).
-Routine post operative care per CT surgery. Pain control.
-Continue aspirin, metoprolol.
-LFT's better: to start statin prior to d/c
#Paroxysmal AFIB
-Currently in NSR.
-Rate control with metoprolol.
-Amiodarone on hold due to transaminitis.
-S/P [facility] MAZE, LAAL (#35 Atriclip).
-[id number] score = 3 (age x1, female, and CAD).
-Therapeutic anticoagulation when appropriate with surgery.
#Anemia
-Acute, post operative.
-improved s/p pRBC on 08/26
#GLENDA: resolved
#Recent Flu A
-Acute, resolved.
-Required oseltamivir.
#Anxiety/depression
-Chronic, stable.
-Continue escitalopram.
Subjective/Interval History:
Resting in chair. +fatigue.
DATA:
TTE, 08/24/2023:
CONCLUSIONS
�Normal left ventricular chamber size.� Normal left ventricular systolic
�function.
�Left ventricular ejection fraction is 55-60%.
�No prior study available for comparison.
Physical Exam
Vital Signs/Labs
Vital Signs
Temp Pulse Resp BP Pulse Ox
98.2 F 67 18 102/66 94
08/27/23 14:47 08/27/23 14:45 08/27/23 14:47 08/27/23 14:45 08/27/23 14:47
08/26/23 08/27/23 08/28/23
06:59 06:59 06:59
Actual Weight 70.1 kg 70.6 kg
08/27/23 03:13
08/27/23 03:13
PT 18.8 Sec (11.4-14.6) H 08/24/23 11:49
INR 1.56 08/24/23 11:49
APTT 31.8 Sec (23.4-35.0) 08/24/23 11:49
Magnesium 2.1 mg/dl (1.6-2.3) 08/25/23 03:06
Triglycerides 84 mg/dl (10-149) 08/22/23 03:36
LDL Cholesterol, Calc 47 mg/dl 08/22/23 03:36
VLDL Cholesterol, Calc 16 mg/dl (0-30) 08/22/23 03:36
HDL Cholesterol 54 mg/dl 08/22/23 03:36
08/21/23
10:45
[id number] Pept 418
Physical Exam
Constitutional: No acute distress and Comfortable
EENT: Moist mucous membranes
Cardiovascular: Rhythm & rate is regular, Pedal edema is absent, JVD pressure is normal and Systolic murmur absent
Respiratory: Respiratory effort normal and Lungs clear to auscul.
GI: Soft, Distention absent and Flat
Neuro/Psych: Oriented
Data Reviewed
-
Date of Service: August 27, 2023
EKG: Other (SR 60s)
Labs: Labs Reviewed by me
--- NOTE | 2023-08-27 20:00 | PTCARENOTE ---
Assumed care of patient from previous RN. AAO x 3 sitting up in bed. Denies complaint at present. SR on monitor. Epicardial wire insulated. Room air 93%. Pt with loose productive cough. Abdomen with positive bowel sounds through out. Passing
flatus. Voiding w/o issue. Pulses palpable. No edema appreciated. Surgical incisions WHEELCHAIR VAN OPERATOR FIRST RESPONDER, well approximated and scabbed.
[2023-08-27] MEDS: XANAX 0.25 MG PO (22:45)
--- NOTE | 2023-08-27 23:11 | PTCARENOTE ---
Resting in bed, xanax given at pt request. Assisted into bathroom to preform pre bed ADL's. VSS. Assessment unchanged from prior.
[2023-08-28] MEDS: TYLENOL 650 MG PO (03:33)
[2023-08-28 03:35] VITALS: BP 119/84
[2023-08-28 03:54] VITALS: BMI 24.5
[2023-08-28] MEDS: FLEXERIL 5 MG PO (03:54)
[2023-08-28 04:11] LABS: Hematocrit 30.6 % (37.0-47.0); Hemoglobin 10.4 g/dL (12.0-16.0); Mean Corpuscular Volume 91.1 fL (81.0-99.0); Mean Platelet Volume 10.6 fL (7.4-10.4); Platelet Count 255 10^3/uL (130-400); Red Blood Cell Count 3.36 10^6/uL (4.20-5.40); Red Cell Dist. Width 13.3 % (11.5-14.5)
--- NOTE | 2023-08-28 04:27 | PTCARENOTE ---
VSS, pt c/o general chest /sternum achiness. tylenol and flexeril administered. AM labs obtained. Assessment unchanged from prior.
[2023-08-28 04:32] LABS: Blood Urea Nitrogen 17 mg/dl (7-17); Calcium 9.1 mg/dl (8.4-10.2); Carbon Dioxide 24 mmol/L (22-30); Chloride 104 mmol/L (98-107); Estimated Creatinine Clearance 72 ml/min; Glucose 100 mg/dl (70-99); Sodium 137 mmol/L (135-145); eGFR > 60.00
--- NOTE | 2023-08-28 06:04 | W.PN.CT ---
Today's Communication / Plan
-
pod #4
-no issues overnight
-s/p 1 pRBC 08/26, hgb 10.4 08/28
-voiding
-hypotension improved, off midodrine 08/27
-consider BB, originally held for hypotension
-LFTs improving: stating resumed, cont holding Amio for now
-encourage IS, OOB
-dispo planning
Assessment / Plan
-
Assessment:
- s/p CABG x 3 [id number]; SVG-OM; Left atrial appendage #35mm clip; [facility] MAZE on 08/24/[address] Miller, pod #4
- ELINA: EF 50-55%, no change post, no new wma. Leila free of clot, complete occlusion post clip
72 y/o F, transferred from [facility] on 08/21/23
-Multivessel CAD (involving LAD, CX and distal LM)
-NSTEMI @ [facility]
-Afib/flutter on admission to [facility] 08/14/23
-LVEF 50-55%
-Recent influenza A virus (completed course of Tamiflu @ [facility])
-Recent COVID (06/2024)
-Iodinated Contrast Media Allergy (Intermediate, Verified 08/21/23 10:43)
-PCN allergy (rash)
-Anxiety/depression
-Prediabetes (A1C 6.0)
-GERD
-Transaminitis -improved after statin held
-ETOH use (admits to at least 3 drinks every other day)
-Former tobacco use
-Occasional marijuana use
-Diverticulosis
-Spinal stenosis
-Left adrenal mass (stable, 9mm, per CTA 08/14/23)
-Left Ovarian cyst (2.8 cm, per CTA 08/14/23)
-Abnormal postop ECG - with unremarkable postop Echo (nl LVEF 55-60%, no regional wma)-follow-up ECG improved
-Acute postop blood loss anemia - no active bleed, s/p 1 pRBC on 08/26 for Hg 7.8
-Acute postop atelectasis
-Acute postop hypovolemia with hypotension- improved after blood transfusion
-Acute postop hypokalemia
-GLENDA- resolved
Discussed patient care with: Care Team
Subjective
Procedure
- s/p CABG x 3 PINEDA-LAD & diag; SVG-OM; Left atrial appendage #35mm clip; [facility] MAZE on 08/24/[address] Miller
-
Date of Service: August 28, 2023
Objective Data
-
Lab Results
08/27/23 03:13
08/27/23 03:13
PT 18.8 Sec (11.4-14.6) H 08/24/23 11:49
INR 1.56 08/24/23 11:49
APTT 31.8 Sec (23.4-35.0) 08/24/23 11:49
Vital Signs
Vital Signs
Temp Pulse Resp BP Pulse Ox
98.9 F 75 18 110/75 93
08/27/23 20:21 08/27/23 20:21 08/27/23 20:21 08/27/23 20:10 08/27/23 20:58
CT Intake/Output/Weight
08/27/23 08/27/23 08/28/23
06:59 18:59 06:59
Intake Total 100 / 340 240 / 340
Balance 100 / 340 240 / 340
SaO2: 93
Physical Exam
-
General: Awake, Oriented and AOx3
Cardiovascular: Regular rate & rhythm
Respiratory: Clear and Equal
Sternum: Stable
Incision: Clean, Dry and Intact
Extremities: No Edema
Data Reviewed
-
Lab Results: Results Reviewed
Medications: Active Meds Reviewed
Chest X-Ray: Image Reviewed
Vital Signs / Labs
-
Vital Signs and Labs:
Temp Pulse Resp BP Pulse Ox
97.4 F 73 16 119/84 96
08/28/23 03:35 08/28/23 03:35 08/28/23 03:35 08/28/23 03:35 08/28/23 03:35
08/28/23 03:50
08/28/23 03:50
08/23/23 08/28/23
11:29 03:50
RBC 3.36 L
Hgb 10.4 L
Hct 30.6 L
MPV 10.6 H
Glucose 100 H
Crossmatch IS Only See Detail
[2023-08-28 08:07] VITALS: BP 125/75
--- NOTE | 2023-08-28 08:16 | PTCARENOTE ---
Patient received from shift mechanic resting oob in chair, AAO X 3, awaiting breakfast. NSR via cm, SaO2 @ 96% on RA. Epicardial V-wire, insulated to chest wall. All procedural sites stable. Patient updated to plan of care for the day, in agreement.
See work list for full assessment and interventions performed.
--- NOTE | 2023-08-28 08:25 | W.PN.CD ---
Today's Communication / Plan
-
OK for discharge
Start OAT when OK with surgery (PAF, CHADS-2 vasc 3)
Impression / Plan
-
Impression/Plan: 72 y/o female with GERD, anxiety and recently influenza A positive, transferred from [facility] with NSTEMI and MV CAD for CABG. She did have brief AF-RVR which spontaneously converted at [facility].
#Coronary artery disease
-New diagnosis
-S/P 3V CABG (Sequential PINEDA to diagonal to LAD, SVG to OM).
- Doing well
- Metoprolol to be resumed
-LFT's better: to start statin prior to d/c
#Paroxysmal AFIB
-Currently in NSR.
-Rate control with metoprolol.
-Amiodarone on hold due to transaminitis- LFTS continue to approach normal level. IF recurrent AF OK to resume amiodarone
-S/P [facility] MAZE, LAAL (#35 Atriclip).
-[id number] score = 3 (age x1, female, and CAD).
-Therapeutic anticoagulation recommended when appropriate with surgery.
#Anemia
-Acute, post operative.
-improved s/p pRBC on 08/26
#GLENDA: resolved
#Recent Flu A
-Acute, resolved.
-Required oseltamivir.
#Anxiety/depression
-Chronic, stable.
-Continue escitalopram.
# Dispo
- F/u with [facility]
Subjective/Interval History:
Resting in chair. Feels better each day. Still with incisional pain
DATA:
TTE, 08/24/2023:
CONCLUSIONS
�Normal left ventricular chamber size.� Normal left ventricular systolic
�function.
�Left ventricular ejection fraction is 55-60%.
�No prior study available for comparison.
Physical Exam
Vital Signs/Labs
Vital Signs
Temp Pulse Resp BP Pulse Ox
98.0 F 69 17 125/75 96
08/28/23 08:09 08/28/23 08:09 08/28/23 08:09 08/28/23 08:07 08/28/23 08:13
08/27/23 08/28/23 08/29/23
06:59 06:59 06:59
Actual Weight 155 lb 10.342 oz 156 lb 4.924 oz
08/28/23 03:50
08/28/23 03:50
PT 18.8 Sec (11.4-14.6) H 08/24/23 11:49
INR 1.56 08/24/23 11:49
APTT 31.8 Sec (23.4-35.0) 08/24/23 11:49
Magnesium 2.1 mg/dl (1.6-2.3) 08/25/23 03:06
Triglycerides 84 mg/dl (10-149) 08/22/23 03:36
LDL Cholesterol, Calc 47 mg/dl 08/22/23 03:36
VLDL Cholesterol, Calc 16 mg/dl (0-30) 08/22/23 03:36
HDL Cholesterol 54 mg/dl 08/22/23 03:36
08/21/23
10:45
[id number] Pept 418
Physical Exam
Constitutional: No acute distress and Comfortable
EENT: Anicteric
Cardiovascular: Rhythm & rate is regular
Respiratory: Respiratory effort normal, Lungs clear to auscul., Wheeze Absent and Rhonchi Present (base only)
GI: Soft and Non tender
Neuro/Psych: AO x 3 and Motor deficits absent
Data Reviewed
-
Date of Service: August 28, 2023
[2023-08-28] MEDS: PLAVIX 75 MG PO (08:27)
[2023-08-28] MEDS: BACTROBAN 2% OINTMENT 1 APPLIC NASAL (08:27)
[2023-08-28] MEDS: LOW STRENGTH ASPIRIN 81 MG PO (08:27)
[2023-08-28] MEDS: LEXAPRO 20 MG PO (08:27)
[2023-08-28] MEDS: PROTONIX 40 MG PO (08:27)
[2023-08-28] MEDS: SENOKOT-S 1 TABLET PO (08:28)
[2023-08-28] MEDS: VITAMIN C 500 MG PO (08:28)
[2023-08-28] MEDS: MUCINEX 600 MG PO (08:28)
[2023-08-28] MEDS: MAGNESIUM OXIDE 500 MG PO (08:28)
[2023-08-28] MEDS: NSS IV (08:32)
[2023-08-28] MEDS: LOPRESSOR 12.5 MG PO (08:33)
--- NOTE | 2023-08-28 09:23 | W.DCSUMMARY ---
Discharge Summary
Discharge Data
Date of Admission: 08/21/23
Date of Discharge: 08/28/23
-
Pending Results: No
Hospital Course
Primary care physician:
Dr. Restrepo
Outpatient photographer apprentice lithographic:
Dr. Santos
Inpatient consultants:
CBC, electrical products sales engineer, Infectious disease
Procedures:
1. Coronary artery bypass graft x3
Primary Diagnosis:
1. Critical coronary artery disease.
Secondary Diagnoses:
1. Non ST-elevation myocardial infarction.
2. Atrial fibrillation.
3. Influenza A
4. Transaminitis
HPI: �72-year-old female without a significant prior cardiac history, presented to [facility] with COVID in June 2023. She was discharged in an uncomplicated fashion. She was readmitted recently to [facility] with
shortness of breath and found to be in atrial
fibrillation. At the time of her atrial fibrillation, she had an enzyme spill for demand ischemia, although she had no chest pain. Her workup for atrial fibrillation was cardioversion to sinus rhythm and put on heparin, and she underwent cardiac
catheterization revealing critical LAD and obtuse marginal coronary disease and she was, therefore, referred for surgical intervention.
Hospital course: Patient initially presented at [facility]'s emergency room on 08/14 with palpitations. She was found to be in rapid A-fib and elevated troponins. She ruled in for an NSTEMI and was taken to the cardiac Retail Field Supervisor at [facility] in which multivessel disease was found and she was transferred to [facility] on 08/[address] surgery eval. She was taken to surgery on 08/24 for CABG x 3 left atrial appendage clip, and maze with Dr. Miller. She returned to the
CVICU initial EKG showed lateral ST elevations but echocardiogram was stable and repeat EKG showed resolution of ST elevation. She was extubated on postop day 0. On 08/25 postop day 1 mediastinal chest tubes were removed and pleural chest tubes were
bulb. Leon and A-line were removed. She was started on Plavix. On 2 postop day #2 blood pressure was low overnight Levophed was temporarily restarted but weaned off and was started on midodrine. Hemoglobin in the morning was 7.8 and was
transfused with 1 unit of PRBCs. She was started on ferric gluconate and vitamin C. Pleural chest tubes were removed and liver enzymes were trending down. On 2 postop day #3 hemoglobin after 1 unit of blood was 9.6. Flexeril was added for
better pain control and midodrine was discontinued. Right IJ cordis was discontinued ALT was 41 and Lipitor was restarted. On 2 postop day #4 she was started on a low-dose beta-skyler and two-view chest x-ray was stable. After discussion with
her outpatient photographer apprentice lithographic patient was discontinued on Plavix and will be sent home on Eliquis.
Home medication changes:
Started:
Acetaminophen 650mg every 6 hours as needed for pain control
Aspirin 81mg PO daily for graft patentcy
atorvastatin 40mg PO daily for high cholesterol
Cyclobenzaprine 5mg three times a day for muscle spasms
Eliquis 5mg PO twice a day for blood clot prevention
Metoprolol 12.5mg PO twice a day for blood pressure and heart rate control
Discharge Plan
-
Patient Disposition: Home (Routine Discharge)
Discharge Diagnosis/Procedures: CAD/CABG
Diet: Low Cholesterol, Low Sodium and Diabetic, Carb Controlled
Activity: No strenuous activity
Driving Restrictions: Not until seen by your Dr
Bathing Restrictions: OK to Shower
Blood Work: cmp in one week
Other Services: Cardiac Rehab
Specialty Instructions: Weigh Daily- Call MD for wt gain/loss 3 lbs overnight/5 lbs in 1 week
Activity Restrictions/Additional Instructions:
Please call [facility] to schedule your first visit at [phone].
Referrals:
CT Transitional Care Nurse [Outside] - in one to two days
(
The Cardiothoracic Transitional Care Nurse will call you to set up a visit in 1-2 days.)
Luis Miller MD [Active] - 09/25/23 9:30 am
Mary Beth Santos MD [Active] - 09/26/23 3:40 pm
Maldonado Restrepo DO [Family Provider] - in four to six weeks (Please make an appointment in four to six weeks. )
Prescriptions:
New
acetaminophen 325 mg Tablet
650 mg PO Q6HPRN PRN (Reason: mild pain,headache) Qty: 0 0RF
aspirin [Children's Aspirin] 81 mg Tablet,Chewable
81 mg PO DAILY Qty: 0 0RF
Eliquis 5 mg Tablet
5 mg PO BID Qty: 30 0RF
Rx Instructions:
start on 08/29/23
cyclobenzaprine 10 mg Tablet
5 mg PO TIDPRN PRN (Reason: muscle spasm) Qty: 30 0RF
atorvastatin 40 mg Tablet
40 mg PO QPM Qty: 30 0RF
metoprolol tartrate 25 mg Tablet
12.5 mg PO Q12 Qty: 30 0RF
Continued
alprazolam [Xanax] 0.25 mg Tablet
0.25 mg PO TID PRN (Reason: anxiety)
pantoprazole [Protonix] 40 mg Tablet,Delayed Release (Dr/Ec)
40 mg PO DAILY
escitalopram oxalate [Lexapro] 20 mg Tablet
20 mg PO DAILY
Discharge Orders:
Discharge Patient (As Directed); Ordered 08/28/23
Ordered By: Elicia Machado
Care Plan Goals
Care Plan Goals:
Problem: Readiness for enhanced knowledge related to diagnosis and treatment plan
Goal: Understand your diagnosis and treatment plan needs, including medications if applicable.
Instructions: Know your diagnosis, underlying causes and treatment plan options, including medications if applicable. Consult with your health care team to learn about your diagnosis and treatment plan, including medications if applicable.
Discharge Date and Time
Discharge Date/Time: 08/28/23 13:30
[2023-08-28 09:40] VITALS: BP 105/76
[2023-08-28 09:56] VITALS: BP 111/82
--- NOTE | 2023-08-28 10:05 | CM ---
Reviewed chart. Met with Mrs. Gibson to review discharge plans. She states she is feeling well and maybe able to go home soon. She states she will go stay with her sister Felicitas for awhile. Her sister address is [address] [place] [address]
[place] ([phone]) Her sister resides in a one story home without any steps Mrs. Gibson states she ambulated in the hallway today and did the stairs. We reviewed a home visit by the Cardiothoracic Transitional Care Nurse. She is
agreeable to a home viist. Telephone call to [employer], ([phone]) to check if Eliquis 5 mg po bid is covered. Telephone call to [employer] who states Eliquis is not on formulary. Xarelto 10 mg once a day is covered and the co-pay would be $40.00.
Reviewed with P.A. who still would like to use Eliquis. The one free month coupon is in her discharge folder. She states her sister will be home to assist in her care if needed. Medical work-up in progress. The discharge plan is to go to her
sister home with a home visit by the Cardiothoracic Transitional Care Nurse when medically stable.
[2023-08-28 10:23] VITALS: BP 105/76; BP 111/82; PULSE 70; O2SAT 94; O2SAT 95
[2023-08-28 10:49] VITALS: BP 115/82
--- NOTE | 2023-08-28 14:34 | PN.CDI ---
Addendum entered and electronically signed by Aldair Shrestha PA-C 08/29/23 13:58:
Acute postoperative hypovolemia with hypotension improved after blood transfusion d/t hypovolemic shock
Original Note:
CDI
- -
CDI:
Physician Documentation Request
Admit Date: 08/21/23 09:[address] Surgery,
Patient post-op CABG x3 on 08/24.
08/26 PCN: 'Pt BP 70s/50s MAP<65. CVPA made aware, new order received to start Levophed @ 2 mcg/min.'
08/26 CT Surgery PN: 'hypotensive overnight (re-checked with manual BP cuff) - restarted Levo @ 3...h/h today 7.1/21.8 (9.7/27.9 on 08/25) with hypotension and mild increase in Cr - consider 1pRBC'
08/27 CT Surgery PN: 'Acute postop hypovolemia with hypotension- improved after blood transfusion'
Please clarify which of the following is the most likely etiology of the above symptoms and treatment rendered:
Hypovolemic shock - indicate if due to surgery, trauma or other etiology
Postoperative shock, type unknown
Hypotension
Other
Use of terms such as suspected, likely, concern for, or probable (associated with a specific diagnosis that is being evaluated, monitored, or treated as if it exists) are acceptable and can be coded in the inpatient setting, when documented at the
time of discharge.
Thank you,
Divay Jon RN, BSN
CDI Specialist
Available via [place] text
Please use your independent medical judgment in providing your response.
--- NOTE | 2023-08-28 15:36 | PTCARENOTE ---
Discharge: Extensive discharge teaching completed with patient and her sister. All discharge instruction read by patient and sister, and read a second time by myself. Medications due tonight explained to patient and sister and circled in blue
marker. All routine meds highlighted and explained. Home care after surgery including showering and daily weight explained. Pt education reinforced about ISB use, cough and deep breathing with the heart pillow, mobility, nutrition, pain
management, sternal precautions and rest periods. Pt asked to demonstrate ISB, and patient education completed to correct technique. Pt demonstrated understanding of education using the teach back method. Proper technique with the incentive
spirometer will be reinforced, and patient instructed to use the ISB ten times per hour (minimum). Pt sitting in the chair and resting comfortably. Pacer wires cut by CT nurse and IV site d/c. Pt has showered and dressed. Daily weight education
reinforced. Pt instructed about anticoagulation treatment, frequent movement, frequent ankle pumps, and the need to increase activity during recovery after discharge. Pt taken by wheelchair to private vehicle. Assisted in vehicle with seatbelt
secured.
[2023-08-28] MEDS: FERRLECIT IV (15:48)
--- NOTE | 2023-08-28 19:26 | PTCARENOTE ---
Late entry: pt was given her atrial appendage clip information card for her wallet, the free 30 day supply of anticoagulant coupon, and discharge information packets.
== END 2023-08-28 13:30 | disposition home or self-care (01) | DRG 233 ==
LOC: CVICU 09:45
PROVIDERS: Clinical Nurse Specialist Acute Care; Nurse Practitioner; Physician Assistant Medical; ADMITTING PHYSICIAN Thoracic Surgery (Cardiothoracic Vascular Surgery); CONSULT PHYSICIAN Internal Medicine; CONSULT PHYSICIAN Internal Medicine Critical Care Medicine; CONSULT PHYSICIAN Internal Medicine Infectious Disease; FAMILY PHYSICIAN Family Medicine
PROC: B24BZZ4 Ultrasonography of Heart with Aorta, Transesophageal (ICD-10-PCS; 2023-08-25)
PROC: 02580ZZ Destruction of Conduction Mechanism, Open Approach (ICD-10-PCS; 2023-08-25)
PROC: 06BP4ZZ Excision of Right Saphenous Vein, Percutaneous Endoscopic Approach (ICD-10-PCS; 2023-08-25)
PROC: 5A1221Z Performance of Cardiac Output, Continuous (ICD-10-PCS; 2023-08-25)
PROC: 02L70CK Occlusion of Left Atrial Appendage with Extraluminal Device, Open Approach (ICD-10-PCS; 2023-08-25)
PROC: 021009W Bypass Coronary Artery, One Artery from Aorta with Autologous Venous Tissue, Open Approach (ICD-10-PCS; 2023-08-25)
PROC: 02110Z9 Bypass Coronary Artery, Two Arteries from Left Internal Mammary, Open Approach (ICD-10-PCS; 2023-08-25)
PROC: 30233N1 Transfusion of Nonautologous Red Blood Cells into Peripheral Vein, Percutaneous Approach (ICD-10-PCS; 2023-08-26)
DX: I21.4 Non-ST elevation (NSTEMI) myocardial infarction (principal); R57.1 Hypovolemic shock; N17.9 Acute kidney failure, unspecified; D62 Acute posthemorrhagic anemia; I25.10 Atherosclerotic heart disease of native coronary artery without angina pectoris; I48.0 Paroxysmal atrial fibrillation; J10.1 Influenza due to other identified influenza virus with other respiratory manifestations; R74.01 Elevation of levels of liver transaminase levels; E78.00 Pure hypercholesterolemia, unspecified; I10 Essential (primary) hypertension; Z79.01 Long term (current) use of anticoagulants; Z79.82 Long term (current) use of aspirin; Z87.891 Personal history of nicotine dependence
CPT/HCPCS: 93308; 33259; 71045; 71046; 80048; 80053; 80061; 81003; 81015; 82248; 82330; 82565; 82805; 82947; 82962; 82977; 83036; 83735; 83880; 84132; 84302; 84484; 84520; 85014; 85018; 85027; 85049; 85610; 85730; 86850; 86900; 86901; 86920; 87070; 93005; 93312; 93320; 93325; 94002; 94010; C1713; J2916; P9016; P9045